=== PATIENT | female | born 1955 | race Caucasian/White ===

== ENCOUNTER 2017-10-09 09:52 | Observation (INO) | payer MEDICARE ==
[~2017-10-09] VITALS: Ht 160 cm; Wt 100.0 kg
[~2017-10-09 09:52] MED LIST: ATOR80TA45 PO; HYDR-3366 PO; LEVO150T7 PO; LISI20TA PO; METF850T PO
[2017-10-09 10:01] VITALS: BP 132/65; PULSE 74; RESP 20; TEMP 97.4; O2SAT 94
--- NOTE | 2017-10-09 10:37 | PD ---
HPI Chief Complaint: Pain: Acute or Chronic Time Seen by Provider: 10:20 Travel History International Travel<30 days: No Contact w/Intl Traveler<30days: No Traveled to known affect area: No History of Present Illness HPI Patient is a 62-year-old female presents emergency department for evaluation of worsening bilateral lower extremity pain with numbness and tingling over her gluteal muscles. Patient states that she had a spinal tumor removed some years ago in [place], she states that she has had chronic back pain since then. States she had an MRI in February which did show some stenosis but she has never followed up with a surgeon. She states ever since that MRI her symptoms are gradually worsening. She has also noticed some trickling urination. She is still retain the ability to walk albeit she is having painful radiculopathy going down both legs. She is taking pain medication at home and is taking Percocets which are relieving her pain. She also endorses saddle anesthesia. Denies any loss of stool or bladder. She told her primary care physicians at the family practice residency that she was having the symptoms on (4 days ago) and they told her to come to the emergency department for evaluation and she states that she had family in town so she waited till today. [facility] Past Medical History Narrative Medical Hypertension, diabetes, Diabetes: Yes Past Surgical History Narrative Surgical Cholecystectomy, back surgery. Social History Tobacco Use: Yes Allergies-Medications (Allergen,Severity, Reaction): Coded Allergies: No Known Allergies (Verified Allergy, Unknown, 06/30/17) Reported Meds & Prescriptions Reported Meds & Active Scripts Active Levothyroxine (Levothyroxine Sodium) 150 Mcg Tab 150 Mcg PO DAILY Bates (Hydrocodone-Acetaminophen) 10-325 Mg Tab 1 Tab PO Q8HR PRN Atorvastatin (Atorvastatin Calcium) 80 Mg Tab 80 Mg PO HS Metformin (Metformin HCl) 850 Mg Tab 850 Mg PO DAILY With a meal Lisinopril-Hctz 20-12.5 Mg Tab 1 Tab PO DAILY Review of Systems Except as stated in HPI: all other systems reviewed are Neg Physical Exam Narrative GENERAL: Well-developed well-nourished no obvious distress. SKIN: Focused skin assessment warm/dry. HEAD: Atraumatic. Normocephalic. EYES: Pupils equal and round. No scleral icterus. No injection or drainage. ENT: No nasal bleeding or discharge. Mucous membranes pink and moist. NECK: Trachea midline. No JVD. CARDIOVASCULAR: Regular rate and rhythm. No murmur appreciated. RESPIRATORY: No accessory muscle use. Clear to auscultation. Breath sounds equal bilaterally. GASTROINTESTINAL: Abdomen soft, non-tender, nondistended. Hepatic and splenic margins not palpable. MUSCULOSKELETAL: No obvious deformities. No clubbing. No cyanosis. No edema. NEUROLOGICAL: Awake and alert. Patient does have 5 out of 5 strength in bilateral lower extremities and plantar and dorsiflexion, she is able to ambulate without assistance. She does have loss of sensation over the gluteal muscles and some loss of sensation in the saddle distribution. Cranial nerves II through XII grossly intact and nonfocal. She has no midline CT or L-spine tenderness PSYCHIATRIC: Appropriate mood and affect; insight and judgment normal. Data Data Last Documented VS Vital Signs Date Time Temp Pulse Resp B/P (MAP) Pulse Ox O2 Delivery O2 Flow Rate FiO2 10/09/17 11:57 18 10/09/17 10:01 97.4 74 132/65 (87) 94 Orders Orders Mri L Spine W/O Contrast (10/09/17 ) Urinalysis - C+S If Indicated (10/09/17 10:46) Electrocardiogram (10/09/17 11:38) Ckmb (Isoenzyme) Profile (10/09/17 11:38) Complete Blood Count With Diff (10/09/17 11:38) Comprehensive Metabolic Panel (10/09/17 11:38) Magnesium (Mg) (10/09/17 11:38) Prothrombin Time / Inr (Pt) (10/09/17 11:38) Act Partial Throm Time (Ptt) (10/09/17 11:38) Troponin I (10/09/17 11:38) Ecg Monitoring (10/09/17 11:38) Bilateral Bp Monitoring (10/09/17 11:38) Iv Access Insert/Monitor (10/09/17 11:38) Oximetry (10/09/17 11:38) Oxygen Administration (10/09/17 11:38) Sodium Chloride 0.9% Flush (Ns Flush) (10/09/17 11:45) Chest, Pa & Lat (10/09/17 11:38) Consult Neurosurgery (10/09/17 ) Diet Npo (10/09/17 Lunch) Admit Order (Ed Use Only) (10/09/17 ) CKMB (10/09/17 11:54) CKMB% (10/09/17 11:54) Labs Laboratory Tests Test 10/09/17 11:54 White Blood Count 7.5 TH/MM3 Red Blood Count 4.26 MIL/MM3 Hemoglobin 13.8 GM/DL Hematocrit 39.9 % Mean Corpuscular Volume 93.7 FL Mean Corpuscular Hemoglobin 32.5 PG Mean Corpuscular Hemoglobin Concent 34.7 % Red Cell Distribution Width 12.6 % Platelet Count 304 TH/MM3 Mean Platelet Volume 7.2 FL Neutrophils (%) (Auto) 50.4 % Lymphocytes (%) (Auto) 42.2 % Monocytes (%) (Auto) 5.7 % Eosinophils (%) (Auto) 1.1 % Basophils (%) (Auto) 0.6 % Neutrophils # (Auto) 3.8 TH/MM3 Lymphocytes # (Auto) 3.2 TH/MM3 Monocytes # (Auto) 0.4 TH/MM3 Eosinophils # (Auto) 0.1 TH/MM3 Basophils # (Auto) 0.0 TH/MM3 CBC Comment DIFF FINAL Differential Comment Prothrombin Time 10.2 SEC Prothromb Time International Ratio 1.0 RATIO Activated Partial Thromboplast Time 26.1 SEC Blood Urea Nitrogen 16 MG/DL Creatinine 0.74 MG/DL Random Glucose 94 MG/DL Total Protein 7.4 GM/DL Albumin 3.5 GM/DL Calcium Level 8.4 MG/DL Magnesium Level 1.8 MG/DL Alkaline Phosphatase 57 U/L Aspartate Amino Transf (AST/SGOT) 27 U/L Alanine Aminotransferase (ALT/SGPT) 27 U/L Total Bilirubin 0.3 MG/DL Sodium Level 137 MEQ/L Potassium Level 4.0 MEQ/L Chloride Level 106 MEQ/L Carbon Dioxide Level 26.5 MEQ/L Anion Gap 5 MEQ/L Estimat Glomerular Filtration Rate 80 ML/MIN Total Creatine Kinase 208 U/L Creatine Kinase MB 3.0 NG/ML Creatine Kinase MB % 1.4 % Troponin I LESS THAN 0.02 NG/ML MDM Medical Decision Making Medical Screen Exam Complete: Yes Emergency Medical Condition: Yes Differential Diagnosis Cauda equina syndrome, chronic low back pain, acute on chronic low back pain, degenerative disc disease, urinary tract infection peer Narrative Course Patient symptoms certainly could be from cauda equina syndrome and I think that it would be prudent to perform an MRI on this patient this time. Her neurologic findings are rather limited however. Last 24 hours Impressions Chest X-Ray 10/09/17 1138 Signed Impressions: Service Date/Time: Monday, October 09, 2017 11:59 - CONCLUSION: No acute disease. Alfonso Reyes MD FACR Lumbar Spine MRI 10/09/17 0000 Signed Impressions: Service Date/Time: Monday, October 09, 2017 11:03 - CONCLUSION: Radiography significant spinal stenosis at the L3-4 level. Thecal sac at this level is obliterated. Alfonso Reyes MD FACR Dr. Jordan is at the bedside at noon to evaluate the patient. For MRI results which show obliteration at the L3-L4 level of the thecal sac. The results were discussed with the patient will be admitted to the residents. Patient was offered pain medicine declined at several intervals throughout her encounter in the ER. Diagnosis Primary Impression: Cauda equina syndrome Admitting Information Admitting Physician Requests: Admit Condition: Ken Shen MD Oct 09, 2017 10:37
--- NOTE | 2017-10-09 11:28 | RADRPT ---
EXAM DATE/TIME: 10/09/2017 11:03 [facility] COMPARISON: No previous studies available for comparison. INDICATIONS : Pain. Numbness and tingling bilateral lower extremities. MEDICAL HISTORY : Hypertension. Diabetes mellitus type 2. Hypothyroidism. SURGICAL HISTORY : Cholecystectomy. ENCOUNTER: Initial ACUITY: > 1 year PAIN SCORE: 2/10 LOCATION: [facility] TECHNIQUE: Multiplanar multisequence MRI of the lumbar spine was performed without contrast. FINDINGS: The most caudal appearing lumbar vertebra is numbered as L5. VERTEBRAE: Homogeneous signal. Normal alignment. CONUS: Normal level and configuration. T12-L1: The thecal sac has a normal diameter. No evidence of disc bulge or protrusion. The neural foramina are patent bilaterally. L1-L2: Mild generalized bulging without significant spinal stenosis. Mild facet disease. L2-L3: Moderate disc bulging evident with mild spinal stenosis. Moderate degenerative changes. L3-L4: Generalized bulging present with moderate to severe spinal stenosis. Degenerative changes in the fac et and ligamentous hypertrophy. L4-L5: Generalized bulging evident is centered to the left causing some flattening of the anterior thecal sp dimitri. Moderate bilateral neural foramina encroachment is present. L5-S1: Mild facet degenerative changes. No significant spinal stenosis SI joints are normal Retroperitoneum is unremarkable. CONCLUSION: Radiography significant spinal stenosis at the L3-4 level. Thecal sac at this level is obliterated. Alfonso Reyes MD FACR on October 09, 2017 at 11:24 Board Certified Radiologist. This report was verified electronically.
[2017-10-09] MEDS ORDERED: SODIUM CHLORIDE 0.9% FLUSH 10 ML FLUSH IVF PRN (11:45)
[2017-10-09 12:01] LABS: AUTOMATED NEUTROPHIL # 3.8 TH/MM3 (1.8-7.7); BASOPHIL % 0.6 % (0.0-2.0); EOSINOPHIL # 0.1 TH/MM3 (0-0.4); EOSINOPHIL % 1.1 % (0.0-4.0); HEMATOCRIT 39.9 % (35.0-46.0); HEMOGLOBIN 13.8 GM/DL (11.6-15.3); LYMPH % 42.2 % (9.0-44.0); LYMPHOCYTE # 3.2 TH/MM3 (1.0-4.8); MEAN CELL VOLUME 93.7 FL (80.0-100.0); MEAN CORPUSCULAR HEMOGLOBIN 32.5 PG (27.0-34.0); MEAN CORPUSCULAR HGB CONC 34.7 % (32.0-36.0); MEAN PLATELET VOLUME 7.2 FL (7.0-11.0); MONO % 5.7 % (0.0-8.0); MONOCYTE # 0.4 TH/MM3 (0-0.9); NEUT % 50.4 % (16.0-70.0); PLATELET COUNT 304 TH/MM3 (150-450); RED BLOOD COUNT 4.26 MIL/MM3 (4.00-5.30); RED CELL DISTRIBUTION WIDTH 12.6 % (11.6-17.2); WHITE BLOOD COUNT 7.5 TH/MM3 (4.0-11.0)
--- NOTE | 2017-10-09 12:01 | PD.CONS ---
HPI Consult Requested By Primary Care Physician Zena Matamoros MD History of Present Illness This is a 62 y/o female with history of neurofibroma, status post lumbar laminectomy and resection in 2013, diabetes mellitus, and carpal tunnel. She was sent into ED from clinic for evaluation of lower extremity numbness, and tingling in her groin. She started feeling tingling and paresthesias down the back of her legs, with shooting pains approximately 3-4 months ago along. She also has noticed change in urination in the past 2 months, with urgency. She awakens frequently overnight to urinate, doesn't always make it to the bathroom in time. No change in bowel movements. She denies any change in her back pain, which is 3/10 pain (also controlled by Simon ).She denies focal motor weakness or sensory loss. She denies urine/stool incontinence. She has experienced pain down the back of her legs and calfs over the last 3-4 months. She also admits to occasional numbness and tingling in her arms. She states this does feel similar to her carpal tunnel sx in the past. She has chronically had issues walking since her surgery in 2012, with the biggest obstacle being the leg pain. The type of leg pain has changed in the last 3-4 months. . Caprini VTE Risk Assessment Caprini VTE Risk Assessment: No/Low Risk (score <= 1) Caprini Risk Assessment Model Point Value = 1 Point Value = 2 Point Value = 3 Point Value = 5 Age 41-60 Minor surgery BMI > 25 kg/m2 Swollen legs Varicose veins or History of unexplained or recurrent spontaneous Oral contraceptives or hormone replacement Sepsis (< 1 month) Serious lung disease, including pneumonia (< 1 month) Abnormal pulmonary function Acute myocardial infarction Congestive heart failure (< 1 month) History of inflammatory bowel disease Medical patient at bed rest Age 61-74 Arthroscopic surgery Major open surgery (> 45 min) Laparoscopic surgery (> 45 min) Malignancy Confined to bed (> 72 hours) Immobilizing plaster cast Central venous access Age >= 75 History of VTE Family history of VTE Factor V Leiden Prothrombin [id number] Lupus anticoagulant Anticardiolipin antibodies Elevated serum homocysteine Heparin-induced thrombocytopenia Other congenital or acquired thrombophilia Stroke (< 1 month) Elective arthroplasty Hip, pelvis, or leg fracture Acute spinal cord injury (< 1 month) Prophylaxis Regimen Total Risk Factor Score Risk Level Prophylaxis Regimen 0-1 Low Early ambulation 2 Moderate Order ONE of the following: *Sequential Compression Device (SCD) *Heparin 5000 units SQ BID 3-4 Higher Order ONE of the following medications: *Heparin 5000 units SQ TID *Enoxaparin/Lovenox 40 mg SQ daily (WT < 150 kg, CrCl > 30 mL/min) *Enoxaparin/Lovenox 30 mg SQ daily (WT < 150 kg, CrCl > 10-29 mL/min) *Enoxaparin/Lovenox 30 mg SQ BID (WT < 150 kg, CrCl > 30 mL/min) AND/OR *Sequential Compression Device (SCD) 5 or more Highest Order ONE of the following medications: *Heparin 5000 units SQ TID (Preferred with Epidurals) *Enoxaparin/Lovenox 40 mg SQ daily (WT < 150 kg, CrCl > 30 mL/min) *Enoxaparin/Lovenox 30 mg SQ daily (WT < 150 kg, CrCl > 10-29 mL/min) *Enoxaparin/Lovenox 30 mg SQ BID (WT < 150 kg, CrCl > 30 mL/min) AND *Sequential Compression Device (SCD) Assessment and Plan Assessment and Plan 62 y/o F, hx of neurofibroma removal in 2012, DM2, and carpal tunnel, presents with cauda equina sx for 3-4months. Code Status Pending assessment by neurosurgery Problem List: (1) Cauda equina syndrome ICD Codes: G83.4 - Cauda equina syndrome Status: Acute Plan: Sx for 3-4months Follow-up immediate neurosurgical evaluation MRI 09/2017: Significant spinal stenosis at L3-L4 level. Thecal sac at this level is obliterated. Previous MRI 01/2017: Dextroscoliosis of lower lumbar spine, disc herniation from L1-S1, narrowing of central canal impinging L3 root. No compression or marrow infiltration. (2) Bilateral sciatica ICD Codes: M54.31 - Sciatica, right side; M54.32 - Sciatica, left side Status: Chronic Plan: Associated with lumbar spinal stenosis and cauda equina compression/ obliteration Consistent with pain in buttock and leg that is provoked by exercise and movement and relieved with forward bending, associated with cauda equina symptoms; saddle anesthesia, bladder incontinence, urinary retention f/u immediate neurosurgical eval If conservative management is recommended, will likely start steroid course for relief pt has hx of relief on medrol miguel as outpatient (3) Shortness of breath on exertion ICD Codes: R06.02 - Shortness of breath Status: Chronic Plan: Pain related versus early COPD versus CHF Continue pain medication Chest x-ray: Negative Follow-up BNP No signs of peripheral edema or fluid overload to indicate advanced CHF (4) Numbness of upper extremity ICD Codes: R20.0 - Anesthesia of skin Status: Chronic Plan: Differential includes carpal tunnel syndrome versus diabetic neuropathy Did not do carpal tunnel physical exam on admission because arms have been in a abnormal position and tingling is already occurring Repeat carpal tunnel physical exam findings in a.m. Follow-up hemoglobin A1c and fingersticks (5) Chronic hepatitis ICD Codes: K73.9 - Chronic hepatitis, unspecified Plan: dx in [address] abdomen reveals no signs of cirrhosis LFTs WNL f/u hepatitis panel f/u AFP screen (6) Diabetes ICD Codes: E11.9 - Type 2 diabetes mellitus without complications Plan: Hold metformin sliding scale insulin f/u HbA1c f/u FS (7) Hypothyroidism ICD Codes: E03.9 - Hypothyroidism, unspecified Status: Acute Plan: Continue current dosage f/u TSH, due for check (8) Hypertension ICD Codes: I10 - Essential (primary) hypertension Status: Chronic Plan: BP within normal limits Continue home medication (9) fen/ppx Status: Chronic Plan: Fluids: N.p.o. until neurosurgical decision is reached Electrolytes: BMP within normal limits, follow-up and replete as needed Nutrition: N.p.o. until decision Prophylaxis: Not indicated DVT prophylaxis: SCDs only Review of Systems Constitutional: DENIES: Weight gain, Weight loss Endocrine: DENIES: Heat/cold intolerance Eyes: DENIES: Photosensitivity, Double Vision Ears, nose, mouth, throat: DENIES: Nasal discharge, Oral lesions, Throat pain Respiratory: COMPLAINS OF: Shortness of breath (SOB with exertion, COPD related ?) Cardiovascular: COMPLAINS OF: Dyspnea on Exertion, DENIES: Lower Extremity Edema, Orthopnea Gastrointestinal: DENIES: Constipation, Diarrhea, Nausea, Vomiting Genitourinary: DENIES: Hematuria Musculoskeletal: COMPLAINS OF: Back pain Integumentary: DENIES: Rash Immunologic/allergic: DENIES: Urticaria Neurologic: DENIES: Headache, Seizures Psychiatric: DENIES: Mood changes, Depression Past Family Social History Allergies: Coded Allergies: No Known Allergies (Verified Allergy, Unknown, 06/30/17) Past Medical History Hypothyroidism HTN Diabetes Hyperlipidemia Vitamin D Deficiency Chronic back pain, s/p neurofibroma removal Acute disc herniation hx of Hep C Past Surgical History neurosurgical neurofibroma removal 2012, last saw neurosurgeon in 2015 - was recommended to find neurosurgeon here in [facility] and do yearly MRI Cholecystectomy - Carpal Tunnel - bilateral, in [facility] for SAB Multiple endoscopies and colonoscopy + polyp removal EGD with esophageal dilation in 06/2017neurosurgical neurofibroma removal 2012, last saw neurosurgeon in 2015 - was recommended to find neurosurgeon here in [facility] and do yearly MRI Cholecystectomy - Carpal Tunnel - bilateral, in [facility] for SAB Multiple endoscopies and colonoscopy + polyp removal EGD with esophageal dilation in 06/2017 Active Ordered Medications Current Medications Sodium Chloride (NS Flush) 2 ml UNSCH PRN IVF FLUSH AFTER USING IV ACCESS; Start 10/09/17 at 11:45; Stop 10/09/17 at 13:24; Status DC Atorvastatin Calcium (Lipitor) 80 mg HS PO ; Start 10/09/17 at 21:00 Acetaminophen/ Hydrocodone Bitart (Simon 10-325 Mg) 1 tab Q8HR PRN PO PAIN 1-10 ; Start 10/09/17 at 13:00 Levothyroxine Sodium (Synthroid) 150 mcg DAILY@0600 PO ; Start 10/09/17 at 13:00 Non-Formulary Medication 1 tab DAILY PO ; Start 10/09/17 at 13:00; Stop at 13:02; Status DC Lisinopril (Prinivil) 20 mg DAILY PO Last administered on 10/09/17at 13:23; Start 10/09/17 at 13:02 Hydrochlorothiazide (Hydrodiuril) 12.5 mg DAILY PO Last administered on at 13:22; Start 10/09/17 at 13:02 Sodium Chloride (NS Flush) 2 ml UNSCH PRN IV FLUSH FLUSH AFTER USING IV ACCESS ; Start 10/09/17 at 13:30 Sodium Chloride (NS Flush) 2 ml BID IV FLUSH ; Start 10/09/17 at 21:00 Acetaminophen (Tylenol) 650 mg Q4H PRN PO TEMP > 100.4; Start 10/09/17 at 13:30 Ondansetron HCl (Zofran Inj) 4 mg Q6H PRN IVP NAUSEA OR VOMITING; Start at 13:30 Zolpidem Tartrate (Ambien) 5 mg HS PRN PO INSOMNIA; Start 10/09/17 at 13:30 Naloxone HCl (Narcan Inj) 0.4 mg UNSCH PRN IV PUSH SEE LABEL COMMENTS; Start at 13:30 Magnesium Hydroxide (Milk Of Magnesia Liq) 30 ml Q12H PRN PO Mild constipation ; Start 10/09/17 at 13:30 Sennosides (Senokot) 17.2 mg Q12H PRN PO Moderate constipation; Start 10/09/17 at 13:30 Bisacodyl (Dulcolax Supp) 10 mg DAILY PRN RECTAL SEVERE CONSITIPATION; Start at 13:30 Dextrose (D50w (Vial) Inj) 50 ml UNSCH PRN IV PUSH HYPOGLYCEMIA-SEE COMMENTS; Start 10/09/17 at 13:45 Glucagon (Glucagon Inj) 1 mg UNSCH PRN OTHER HYPOGLYCEMIA-SEE COMMENTS; Start 10/09/17 at 13:45 Insulin Aspart (NovoLOG SUPPLEMENTAL SCALE) 1 ACHS SLIDING SCALE SQ ; Start at 17:00 Family History The family history was reviewed Fater renal carcinoma Mother side - heart disease Social History stopped smoking 5 years ago - smoked 1/2 ppd x 30 years,denies drinking or any drug use lives in a mobile home here with Physical Exam Vital Signs Vital Signs Date Time Temp Pulse Resp B/P (MAP) Pulse Ox O2 Delivery O2 Flow Rate FiO2 10/09/17 11:57 18 10/09/17 10:01 97.4 74 20 132/65 (87) 94 Physical Exam GENERAL: well-nourished, well-developed patient, in no apparent distress. Truncal obesity SKIN: No rashes, ecchymoses or lesions. Cool and dry. HEAD: Atraumatic. Normocephalic. No temporal or scalp tenderness. EYES: Pupils equal round and reactive. Extraocular motions intact. No scleral icterus. No injection or drainage. ENT: Nose without bleeding, purulent drainage or septal hematoma. Throat without erythema, tonsillar hypertrophy or exudate. Uvula midline. Airway patent. NECK: Trachea midline. No JVD or lymphadenopathy. Supple, nontender, no meningeal signs. CARDIOVASCULAR: Regular rate and rhythm without murmurs, gallops, or rubs. RESPIRATORY: Clear to auscultation. Breath sounds equal bilaterally. No wheezes , rales, or rhonchi. GASTROINTESTINAL: Abdomen soft, non-tender, nondistended. No hepato-splenomegaly , or palpable masses. No guarding. MUSCULOSKELETAL: Extremities without clubbing, cyanosis, or edema. No joint tenderness, effusion, or edema noted. No calf tenderness. Negative Homans sign bilaterally. Calfs appear to be hypertrophied. NEUROLOGICAL:The patient is alert, awake and oriented to time, place and person. Speech is fluent. Cranial nerve examination: pupils to be equal, round and reactive to light. Extra-ocular movements are intact. Facial motor and sensory function are normal and symmetrical. Gross hearing appears intact. Sternocleidomastoid and trapezius muscles are symmetrical. Other cranial nerves are intact. Neck is soft and supple with a decreased range of motion without pain. Muscle strength is normal in all muscle groups of both upper and lower extremities. Sensory examination is intact to light touch and pin prick in both the upper and lower extremities. Deep tendon reflexes are symmetrical in both upper and lower extremities. There is a bilateral plantar flexion response. Cerebellar examination is unremarkable, without deficits. Gait is unremarkable Laboratory Laboratory Tests Test 10/09/17 11:54 Attending Statement I reviewed her radiological studies including Chest X-Ray 10/09/17 1138 Signed Impressions: Service Date/Time: Monday, October 09, 2017 11:59 - CONCLUSION: No acute disease. Alfonso Reyes MD FACR Lumbar Spine MRI 10/09/17 0000 Signed Impressions: Service Date/Time: Monday, October 09, 2017 11:03 - CONCLUSION: Radiography significant spinal stenosis at the L3-4 level. Thecal sac at this level is obliterated. Alfonso Reyes MD FACR This is a 62 year old female with lumbar spinal stenosis. This patient does not have a caude equine syndrome. She has spinal stenosis with lower extremity radiculopathy. I discussed with her the alternatives of treatment including surgery as a last resort. She has history of neurofibroma, and an MRI without contrast is inappropriate to evaluate her condition. I recommend MRI with contrast of the lumbar and thoracic spine to rule out neurofibroma. the patient has sensory symptoms affecting her upper extremities. I recommend MRI of the cervical spine She is not enthusiastic to consider surgery. I will consult physical therapy for evaluation and treatment. aggressive pulmonary toilette, nasotracheal suction, and breathing treatments with nebulizers. Nutrition. NPO Renal. monitor closely urine output, BUN and creatinine Endocrine. Monitor serial Acu checks and SSI as needed in detail ID monitor for signs of infection Protonix for stress ulcer prophylaxis Enrique hose and SCD's for DVT prophylaxis Further recommendations depending on her clinical evolution and follow up studies Laron Jordan MD Oct 09, 2017 12:01
[2017-10-09 12:22] LABS: PROTHROMBIN TIME - PATIENT 10.2 SEC (9.8-11.6)
--- NOTE | 2017-10-09 12:22 | RADRPT ---
EXAM DATE/TIME: 10/09/2017 11:59 [facility] COMPARISON: No previous studies available for comparison. INDICATIONS : Short of breath. MEDICAL HISTORY : None. SURGICAL HISTORY : None. ENCOUNTER: Initial ACUITY: 1 week PAIN SCORE: 0/10 LOCATION: Bilateral chest FINDINGS: PA and lateral views of the chest demonstrate the lungs to be symmetrically aerated without evidence of mass, infiltrate or effusion. The cardiomediastinal contours are unremarkable. Degenerative davis ges thoracic spine CONCLUSION: No acute disease. Alfonso Reyes MD FACR on October 09, 2017 at 12:20 Board Certified Radiologist. This report was verified electronically.
[2017-10-09 12:25] VITALS: O2SAT 98
[2017-10-09 12:27] LABS: ALBUMIN 3.5 GM/DL (3.4-5.0); ALT (GPT) 27 U/L (10-53); AST (GOT) 27 U/L (15-37); BICARBONATE 26.5 MEQ/L (21.0-32.0); BLOOD UREA NITROGEN 16 MG/DL (7-18); CALCIUM 8.4 MG/DL (8.5-10.1); CHLORIDE 106 MEQ/L (98-107); CREATININE 0.74 MG/DL (0.50-1.00); GLOMERULAR FILTRATION RATE 80 ML/MIN (>89); GLUCOSE,RANDOM 94 MG/DL (74-106); MAGNESIUM 1.8 MG/DL (1.5-2.5); SODIUM (NA) 137 MEQ/L (136-145)
[2017-10-09 12:31] LABS: ALKALINE PHOSPHATASE 57 U/L (45-117); TOTAL BILIRUBIN ADULT 0.3 MG/DL (0.2-1.0); TOTAL PROTEIN 7.4 GM/DL (6.4-8.2); TROPONIN I LESS THAN 0.02 NG/ML (0.02-0.05)
--- NOTE | 2017-10-09 12:36 | HHI.HP ---
[facility] Service Family Medicine Primary Care Physician Zena Matamoros MD Admission Diagnosis Cauda Equina Syndrome Diagnoses: International Travel<30 Days: No Contact w/Intl Traveler<30days: No Known Affected Area: No History of Present Illness 62 y/o F, hx of neurofibroma removal in 2013, DM2, and carpal tunnel, is sent into ED from clinic with chief complaint of numbness and tingling in groin area. She started feeling currents down the back of her legs (shooting pains) 3- 4 months ago alongside the groin symptoms. She has not had any imaging done in the interim although we had ordered imaging in clinic. She also has noticed change in urination; she awakens frequently overnight to urinate, doesn't always make it to the bathroom in time. No change in bowel movements has been noticed. She denies any change in her back pain, and it has stayed at a 3/10 pain (also controlled by Power 10 3-4x/day).She has experienced worsening pain down the back of her legs and calfs over the last 3-4 months. The pain is 6/10 and comes along with the currents. She has numbness/tingling from her feet to her groin area; with her legs and buttocks being the most numb. She also admits to occasional numbness and tingling in her arms. She states this does feel similar to her carpal tunnel sx in the past. She has chronically had issues walking since her surgery in 2012, with the biggest obstacle being the leg pain. The type of leg pain has changed in the last 3-4 months, with the addition of shooting electrical currents. Review of Systems Constitutional: DENIES: Weight gain, Weight loss Endocrine: DENIES: Heat/cold intolerance Eyes: DENIES: Photosensitivity, Double Vision Ears, nose, mouth, throat: DENIES: Nasal discharge, Oral lesions, Throat pain Respiratory: COMPLAINS OF: Shortness of breath (SOB with exertion, COPD related ?) Cardiovascular: COMPLAINS OF: Dyspnea on Exertion, DENIES: Lower Extremity Edema, Orthopnea Gastrointestinal: DENIES: Constipation, Diarrhea, Nausea, Vomiting Genitourinary: DENIES: Hematuria Musculoskeletal: COMPLAINS OF: Back pain Integumentary: DENIES: Rash Immunologic/allergic: DENIES: Urticaria Neurologic: DENIES: Headache, Seizures Psychiatric: DENIES: Mood changes, Depression Past Family Social History Past Medical History Hypothyroidism HTN Diabetes Hyperlipidemia Vitamin D Deficiency Chronic back pain, s/p fibroma removal - nerve compression - handled by neurosurgery Acute disc herniation hx of Hep C Past Surgical History neurosurgical neurofibroma removal 2012, last saw neurosurgeon in 2015 - was recommended to find neurosurgeon here in [facility] and do yearly MRI Cholecystectomy - Carpal Tunnel - bilateral, in [facility] for SAB Multiple endoscopies and colonoscopy + polyp removal EGD with esophageal dilation in 06/2017 - benign-appearing Allergies: Coded Allergies: No Known Allergies (Verified Allergy, Unknown, 06/30/17) Family History Dad - renal carcinoma Mom's side - heart disease Social History stopped smoking 5 years ago - smoked 1/2 ppd x 30 years,denies drinking or any drug use lives in a mobile home here with Physical Exam Vital Signs Vital Signs Date Time Temp Pulse Resp B/P (MAP) Pulse Ox O2 Delivery O2 Flow Rate FiO2 10/09/17 12:25 98 Room Air 10/09/17 12:25 98 Room Air 10/09/17 11:57 18 10/09/17 10:01 97.4 74 20 132/65 (87) 94 Physical Exam GENERAL: This is a well-nourished, well-developed patient, in no apparent distress. SKIN: No rashes, ecchymoses or lesions. Cool and dry. HEAD: Atraumatic. Normocephalic. No temporal or scalp tenderness. EYES: Pupils equal round and reactive. Extraocular motions intact. No scleral icterus. No injection or drainage. ENT: Nose without bleeding, purulent drainage or septal hematoma. Throat without erythema, tonsillar hypertrophy or exudate. Uvula midline. Airway patent. NECK: Trachea midline. No JVD or lymphadenopathy. Supple, nontender, no meningeal signs. CARDIOVASCULAR: Regular rate and rhythm without murmurs, gallops, or rubs. RESPIRATORY: Clear to auscultation. Breath sounds equal bilaterally. No wheezes , rales, or rhonchi. GASTROINTESTINAL: Abdomen soft, non-tender, nondistended. No hepato-splenomegaly , or palpable masses. No guarding. MUSCULOSKELETAL: Extremities without clubbing, cyanosis, or edema. No joint tenderness, effusion, or edema noted. No calf tenderness. Negative Homans sign bilaterally. Calfs appear to be hypertrophied. NEUROLOGICAL: Awake and alert. Cranial nerves II through XII intact. 5/5 sensation equal bilaterally in LE, 5/5 motor strength equal bilaterally in LE. Five out of 5 muscle strength in all muscle groups. Normal speech. Laboratory Laboratory Tests Test 10/09/17 11:54 White Blood Count 7.5 Red Blood Count 4.26 Hemoglobin 13.8 Hematocrit 39.9 Mean Corpuscular Volume 93.7 Mean Corpuscular Hemoglobin 32.5 Mean Corpuscular Hemoglobin Concent 34.7 Red Cell Distribution Width 12.6 Platelet Count 304 Mean Platelet Volume 7.2 Neutrophils (%) (Auto) 50.4 Lymphocytes (%) (Auto) 42.2 Monocytes (%) (Auto) 5.7 Eosinophils (%) (Auto) 1.1 Basophils (%) (Auto) 0.6 Neutrophils # (Auto) 3.8 Lymphocytes # (Auto) 3.2 Monocytes # (Auto) 0.4 Eosinophils # (Auto) 0.1 Basophils # (Auto) 0.0 CBC Comment DIFF FINAL Differential Comment Prothrombin Time 10.2 Prothromb Time International Ratio 1.0 Activated Partial Thromboplast Time 26.1 Blood Urea Nitrogen 16 Creatinine 0.74 Random Glucose 94 Albumin 3.5 Calcium Level 8.4 Magnesium Level 1.8 Aspartate Amino Transf (AST/SGOT) 27 Alanine Aminotransferase (ALT/SGPT) 27 Sodium Level 137 Potassium Level 4.0 Chloride Level 106 Carbon Dioxide Level 26.5 Anion Gap 5 Estimat Glomerular Filtration Rate 80 Result Diagram: 10/09/17 1154 10/09/17 1154 Caprini VTE Risk Assessment Caprini VTE Risk Assessment: No/Low Risk (score <= 1) Caprini Risk Assessment Model Point Value = 1 Point Value = 2 Point Value = 3 Point Value = 5 Age 41-60 Minor surgery BMI > 25 kg/m2 Swollen legs Varicose veins or History of unexplained or recurrent spontaneous Oral contraceptives or hormone replacement Sepsis (< 1 month) Serious lung disease, including pneumonia (< 1 month) Abnormal pulmonary function Acute myocardial infarction Congestive heart failure (< 1 month) History of inflammatory bowel disease Medical patient at bed rest Age 61-74 Arthroscopic surgery Major open surgery (> 45 min) Laparoscopic surgery (> 45 min) Malignancy Confined to bed (> 72 hours) Immobilizing plaster cast Central venous access Age >= 75 History of VTE Family history of VTE Factor V Leiden Prothrombin [id number] Lupus anticoagulant Anticardiolipin antibodies Elevated serum homocysteine Heparin-induced thrombocytopenia Other congenital or acquired thrombophilia Stroke (< 1 month) Elective arthroplasty Hip, pelvis, or leg fracture Acute spinal cord injury (< 1 month) Prophylaxis Regimen Total Risk Factor Score Risk Level Prophylaxis Regimen 0-1 Low Early ambulation 2 Moderate Order ONE of the following: *Sequential Compression Device (SCD) *Heparin 5000 units SQ BID 3-4 Higher Order ONE of the following medications: *Heparin 5000 units SQ TID *Enoxaparin/Lovenox 40 mg SQ daily (WT < 150 kg, CrCl > 30 mL/min) *Enoxaparin/Lovenox 30 mg SQ daily (WT < 150 kg, CrCl > 10-29 mL/min) *Enoxaparin/Lovenox 30 mg SQ BID (WT < 150 kg, CrCl > 30 mL/min) AND/OR *Sequential Compression Device (SCD) 5 or more Highest Order ONE of the following medications: *Heparin 5000 units SQ TID (Preferred with Epidurals) *Enoxaparin/Lovenox 40 mg SQ daily (WT < 150 kg, CrCl > 30 mL/min) *Enoxaparin/Lovenox 30 mg SQ daily (WT < 150 kg, CrCl > 10-29 mL/min) *Enoxaparin/Lovenox 30 mg SQ BID (WT < 150 kg, CrCl > 30 mL/min) AND *Sequential Compression Device (SCD) Assessment and Plan Assessment and Plan 62 y/o F, hx of neurofibroma removal in 2012, DM2, and carpal tunnel, presents with cauda equina sx for 3-4months. Code Status Pending assessment by neurosurgery Problem List: (1) Cauda equina syndrome ICD Codes: G83.4 - Cauda equina syndrome Status: Acute Plan: Sx for 3-4months Follow-up immediate neurosurgical evaluation MRI 09/2017: Significant spinal stenosis at L3-L4 level. Thecal sac at this level is obliterated. Previous MRI 01/2017: Dextroscoliosis of lower lumbar spine, disc herniation from L1-S1, narrowing of central canal impinging L3 root. No compression or marrow infiltration. (2) Bilateral sciatica ICD Codes: M54.31 - Sciatica, right side; M54.32 - Sciatica, left side Status: Chronic Plan: Associated with lumbar spinal stenosis and cauda equina compression/ obliteration Consistent with pain in buttock and leg that is provoked by exercise and movement and relieved with forward bending, associated with cauda equina symptoms; saddle anesthesia, bladder incontinence, urinary retention f/u immediate neurosurgical eval If conservative management is recommended, will likely start steroid course for relief pt has hx of relief on medrol miguel as outpatient (3) Shortness of breath on exertion ICD Codes: R06.02 - Shortness of breath Status: Chronic Plan: Pain related versus early COPD versus CHF Continue pain medication Chest x-ray: Negative Follow-up BNP No signs of peripheral edema or fluid overload to indicate advanced CHF (4) Numbness of upper extremity ICD Codes: R20.0 - Anesthesia of skin Status: Chronic Plan: Differential includes carpal tunnel syndrome versus diabetic neuropathy Did not do carpal tunnel physical exam on admission because arms have been in a abnormal position and tingling is already occurring Repeat carpal tunnel physical exam findings in a.m. Follow-up hemoglobin A1c and fingersticks (5) Chronic hepatitis ICD Codes: K73.9 - Chronic hepatitis, unspecified Plan: dx in [address] abdomen reveals no signs of cirrhosis LFTs WNL f/u hepatitis panel f/u AFP screen (6) Diabetes ICD Codes: E11.9 - Type 2 diabetes mellitus without complications Plan: Hold metformin sliding scale insulin f/u HbA1c f/u FS (7) Hypothyroidism ICD Codes: E03.9 - Hypothyroidism, unspecified Status: Acute Plan: Continue current dosage f/u TSH, due for check (8) Hypertension ICD Codes: I10 - Essential (primary) hypertension Status: Chronic Plan: BP within normal limits Continue home medication (9) fen/ppx Status: Chronic Plan: Fluids: N.p.o. until neurosurgical decision is reached Electrolytes: BMP within normal limits, follow-up and replete as needed Nutrition: N.p.o. until decision Prophylaxis: Not indicated DVT prophylaxis: SCDs only Physician Certification 2 Midnight Certification Type: Admission for Inpatient Services Order for Inpatient Services The services are ordered in accordance with Medicare regulations or non- Medicare payer requirements, as applicable. In the case of services not specified as inpatient-only, they are appropriately provided as inpatient services in accordance with the 2-midnight benchmark. Estimated LOS (days): 2 days is the estimated time the patient will need to remain in the hospital, assuming treatment plan goals are met and no additional complications. Post-Hospital Plan: Home Zena Matmaoros MD R2 Oct 09, 2017 12:36
[2017-10-09] MEDS ORDERED: NON-FORMULARY DRUG (Lisinopril-Hctz 1 TAB) PO SCH (13:00)
[2017-10-09] MEDS: HYDROCHLOROTHIAZIDE 25 MG TAB PO SCH (13:22)
[2017-10-09] MEDS: LISINOPRIL 20 MG TAB PO SCH (13:23)
[2017-10-09 13:25] VITALS: BP 129/62; PULSE 68; RESP 18; O2SAT 99
[2017-10-09] MEDS ORDERED: BISACODYL 10 MG SUPP RECTAL PRN (13:30)
[2017-10-09] MEDS ORDERED: ZOLPIDEM TARTRATE 5 MG TAB PO PRN (13:30)
[2017-10-09] MEDS ORDERED: SODIUM CHLORIDE 0.9% FLUSH 10 ML FLUSH IV FLUSH PRN (13:30)
[2017-10-09] MEDS ORDERED: ONDANSETRON HCL 4 MG/2 ML VIAL IVP PRN (13:30)
[2017-10-09] MEDS ORDERED: NALOXONE HCL 0.4 MG/ML AMP IV PUSH PRN (13:30)
[2017-10-09] MEDS ORDERED: ACETAMINOPHEN 325 MG TAB PO PRN (13:30)
[2017-10-09] MEDS ORDERED: SENNOSIDES 8.6 MG TAB PO PRN (13:30)
[2017-10-09] MEDS ORDERED: GLUCAGON 1 MG/ML VIAL OTHER PRN (13:45)
[2017-10-09] MEDS ORDERED: DEXTROSE 50% IN WATER 50 ML VIAL(D50) IV PUSH PRN (13:45)
[2017-10-09 16:00] VITALS: BP 117/56; PULSE 50; RESP 18; TEMP 97.9; O2SAT 98
[2017-10-09] MEDS: INSULIN ASPART SUPPLEMENTAL SCALE SQ SCH ×2 (17:00→21:00)
[2017-10-09 19:15] LABS: BILIRUBIN, URINE NEG (NEG); BLOOD, URINE NEG (NEG); GLUCOSE,URINE NEG (NEG); KETONE, URINE NEG (NEG); MUCUS URINE FEW /lpf (OCC); NITRITE,URINE NEG (NEG); PH, URINE 5.5 (5.0-8.5); SQUAMOUS EPITHELIAL CELL URINE 3 /hpf (0-5); URINE COLOR YELLOW (YELLW/STRAW); URINE LEUKOCYTE ESTERASE NEG (NEG)
[2017-10-09 20:00] VITALS: BP 99/57; PULSE 66; RESP 18; TEMP 97.8; O2SAT 97
[2017-10-09] MEDS ORDERED: GADODIAMIDE PF 287 MG/ML 20 ML VIAL (for RAD MRI) IVCONTRAST ONE (20:40)
[2017-10-09] MEDS: ATORVASTATIN 80 MG TAB PO SCH (21:08)
[2017-10-09] MEDS: ACETAMINOPHEN/HYDROcodone 325 MG/10 MG TAB PO PRN (21:08)
[2017-10-09] MEDS: SODIUM CHLORIDE 0.9% FLUSH 10 ML FLUSH IV FLUSH SCH (21:09)
--- NOTE | 2017-10-09 21:19 | RADRPT ---
EXAM DATE/TIME: 10/09/2017 20:12 [facility] COMPARISON: No previous studies available for comparison. INDICATIONS : Paresthesia. MEDICAL HISTORY : Hypertension. Hypothyroidism. Diabetes mellitus type 2. SURGICAL HISTORY : Cholecystectomy. ENCOUNTER: Initial ACUITY: 1 day PAIN SCORE: 2/10 LOCATION: Paraspinal TECHNIQUE: Multiplanar, multisequence MRI examination of the cervical spine was performed. FINDINGS: VERTEBRAE: Normal vertebral body height. Homogeneous marrow signal. ALIGNMENT: No evidence of subluxation. CORD: Normal configuration and signal. POST FOSSA: The cerebellar tonsils are normal in position. C2-C3: The thecal sac has a normal configuration. There is no evidence of disc herniation or spinal canal s tenosis. The neural foramina are patent bilaterally. C3-C4: The thecal sac has a normal configuration. There is no evidence of disc herniation or spinal canal s tenosis. The neural foramina are patent bilaterally. C4-C5: The thecal sac has a normal configuration. There is no evidence of disc herniation or spinal canal s tenosis. The neural foramina are patent bilaterally. C5-C6: There is a moderate central to right paracentral disc protrusion abutting the anterior aspect of the cord. There continues to be CSF around the remaining aspects of the cord. The neural foramina are pat ent bilaterally. C6-C7: There is a mild central to right sided disc protrusion. There continues to be CSF around the cord. Th e neural foramina are patent bilaterally. C7-T1: The thecal sac has a normal configuration. There is no evidence of disc herniation or spinal canal s tenosis. The neural foramina are patent bilaterally. CONCLUSION: 1. Moderate central to right-sided disc protrusion at the C5-C6 level abutting the anterior aspect of the cord. 2. Mild central to right-sided disc protrusion at the C6-C7 level. Carlos Rey MD on October 09, 2017 at 21:16 Board Certified Radiologist. This report was verified electronically.
--- NOTE | 2017-10-09 21:46 | RADRPT ---
EXAM DATE/TIME: 10/09/2017 20:12 [facility] COMPARISON: No previous studies available for comparison. INDICATIONS : Numbness and tingling bilateral lower extremities. CONTRAST: 20 cc Omniscan (gadodiamide) IV MEDICAL HISTORY : Hypertension. Diabetes mellitus type 2. Hypothyroidism. SURGICAL HISTORY : Cholecystectomy. ENCOUNTER: Initial ACUITY: 1 day PAIN SCORE: 2/10 LOCATION: Paraspinal TECHNIQUE: Multiplanar multisequence MRI of the thoracic spine was performed. FINDINGS: VERTEBRA: Normal vertebral body height. Homogeneous marrow signal. ALIGNMENT: Normal. CORD: Normal position and configuration. POST CONTRAST: No abnormal areas of contrast enhancement seen. T1-T2: Normal. T2-T3: The thecal sac has a normal diameter. No evidence of disc bulge or protrusion. T3-T4: The thecal sac has a normal diameter. No evidence of disc bulge or protrusion. T4-T5: The thecal sac has a normal diameter. No evidence of disc bulge or protrusion. T5-T6: The thecal sac has a normal diameter. No evidence of disc bulge or protrusion. T6-T7: There is a minimal left lateral recess disc protrusion without significant stenosis. T7-T8: There is a minimal left lateral recess disc protrusion without significant stenosis. T8-T9: The thecal sac has a normal diameter. No evidence of disc bulge or protrusion. T9-T10: There is a minimal right lateral recess disc protrusion without significant stenosis. T10-T11: The thecal sac has a normal diameter. No evidence of disc bulge or protrusion. T11-T12: There is a minimal right lateral recess disc protrusion without significant stenosis. T12-L1: The thecal sac has a normal diameter. No evidence of disc bulge or protrusion. CONCLUSION: Minimal scattered disc changes without significant stenosis delineated above. Carlos Rey MD on October 09, 2017 at 21:42 Board Certified Radiologist. This report was verified electronically.
--- NOTE | 2017-10-09 21:55 | RADRPT ---
EXAM DATE/TIME: 10/09/2017 20:12 [facility] COMPARISON: MRI LUMBAR SPINE W/O CONTRAST, October 09, 2017, 11:03. INDICATIONS : Numbness and tingling bilateral lower extremities. CONTRAST: 20 cc Omniscan (gadodiamide) IV MEDICAL HISTORY : Hypertension. Hypothyroidism. Diabetes mellitus type 2. SURGICAL HISTORY : Cholecystectomy. ENCOUNTER: Initial ACUITY: 1 day PAIN SCORE: 2/10 LOCATION: Paraspinal TECHNIQUE: Multiplanar multisequence MRI of the lumbar spine was performed. FINDINGS: The patient had an MRI examination without contrast performed on 2017 at 11 AM. The most caudal appearing lumbar vertebra is numbered as L5. There is metallic susceptibility artifac t seen at the L4-5 posterior elements, this could be secondary to cerclage wires. Plain films are jacinto vailable at this time. VERTEBRAE: Homogeneous signal. Normal alignment. CONUS: Normal level and configuration. POST CONTRAST: No abnormal areas of contrast enhancement are seen. T12-L1: The thecal sac has a normal diameter. No evidence of disc bulge or protrusion. The neural foramina are patent bilaterally. L1-L2: The thecal sac has a normal diameter. No evidence of disc bulge or protrusion. The neural foramina are patent bilaterally. L2-L3: The thecal sac has a normal diameter. No evidence of disc bulge or protrusion. The neural foramina are patent bilaterally. L3-L4: There is diffuse disc bulge and severe facet and ligamentum flavum hypertrophy leading to moderate to severe narrowing of the thecal sac. There is narrowing of the left neural foramina. The right neural foramina is patent. L4-L5: There is mild bulging better seen on the earlier examination. There is moderate facet hypertrophy see n bilaterally causing mild narrowing of the transverse dimension of the thecal sac. There is narrowin g of the neural foramina bilaterally being worse on the left. L5-S1: The thecal sac has a normal diameter. No evidence of disc bulge or protrusion. There is severe face t hypertrophy. There is narrowing of the right neural foramina. Left neural foramina is patent. CONCLUSION: 1. Moderate to severe stenosis at the L3-L4 level. 2. Mild stenosis at the L4-L5 level. 3. Neural foraminal narrowing at the left L3-L4 level, bilaterally at the L4-L5 level, and at the rig ht L5-S1 level. 4. Suspected postoperative cerclage wires or metallic density at the posterior element of L4 and L5. Carlos Rey MD on October 09, 2017 at 21:45 Board Certified Radiologist. This report was verified electronically.
--- NOTE | 2017-10-09 22:43 | RADRPT ---
EXAM DATE/TIME: 10/09/2017 22:03 [facility] COMPARISON: No previous studies available for comparison. INDICATIONS : Evaluate lumbar spine flextion and extension MEDICAL HISTORY : Hypertension. Hypothyroidism. Diabetes mellitus type 2. SURGICAL HISTORY : Cholecystectomy. Laminectomy ENCOUNTER: Initial ACUITY: 2 days PAIN SCORE: 4/10 LOCATION: Lumbar spine FINDINGS: Lateral views of the lumbar spine were performed in flexion and extension. There is minimal anterior subluxation of L4 on L5. This does not increase on flexion or extension images. Very little overall change is detected between flexion and extension. There are surgical fasteners seen over the posterio r aspects of L4 and L5. There appears to be fusion at the L4-L5 and L5-S1 facet joints. There may be fusion or hypertrophic change at the L3-L4 levels. Vascular calcifications are seen. CONCLUSION: Minimal anterior subluxation of L4 and L5. No abnormal motion is detected. There appears to be fusion at the L4-L5 and L5-S1 facet joint. Surgical fasteners are present. Carlos Rey MD on October 09, 2017 at 22:39 Board Certified Radiologist. This report was verified electronically.
[2017-10-10] VITALS (8 sets, daily range): BP systolic 92–127; BP diastolic 48–67; PULSE 51–66; RESP 17–18; TEMP 97.2–97.9; O2SAT 94–97
[2017-10-10] MEDS: LEVOTHYROXINE SODIUM 150 MCG TAB PO SCH (06:33)
[2017-10-10] MEDS: ACETAMINOPHEN/HYDROcodone 325 MG/10 MG TAB PO PRN ×3 (06:34→22:50)
[2017-10-10] MEDS: INSULIN ASPART SUPPLEMENTAL SCALE SQ SCH ×4 (08:00→21:00)
[2017-10-10 08:57] LABS: BASOPHIL % 0.5 % (0.0-2.0); EOSINOPHIL # 0.1 TH/MM3 (0-0.4); EOSINOPHIL % 1.2 % (0.0-4.0); HEMATOCRIT 38.5 % (35.0-46.0); HEMOGLOBIN 13.4 GM/DL (11.6-15.3); LYMPH % 38.3 % (9.0-44.0); LYMPHOCYTE # 2.2 TH/MM3 (1.0-4.8); MEAN CELL VOLUME 94.3 FL (80.0-100.0); MEAN CORPUSCULAR HEMOGLOBIN 32.8 PG (27.0-34.0); MEAN CORPUSCULAR HGB CONC 34.8 % (32.0-36.0); MEAN PLATELET VOLUME 7.8 FL (7.0-11.0); MONO % 7.4 % (0.0-8.0); MONOCYTE # 0.4 TH/MM3 (0-0.9); NEUT % 52.6 % (16.0-70.0); PLATELET COUNT 251 TH/MM3 (150-450); RED BLOOD COUNT 4.08 MIL/MM3 (4.00-5.30); RED CELL DISTRIBUTION WIDTH 12.4 % (11.6-17.2); WHITE BLOOD COUNT 5.8 TH/MM3 (4.0-11.0)
[2017-10-10] MEDS: HYDROCHLOROTHIAZIDE 25 MG TAB PO SCH (09:00)
[2017-10-10 09:16] LABS: BICARBONATE 25.9 MEQ/L (21.0-32.0); CREATININE 0.68 MG/DL (0.50-1.00)
[2017-10-10] MEDS: MAGNESIUM HYDROXIDE SUSP 30 ML CUP PO PRN (10:02)
[2017-10-10] MEDS: LISINOPRIL 20 MG TAB PO SCH (10:03)
[2017-10-10] MEDS: SODIUM CHLORIDE 0.9% FLUSH 10 ML FLUSH IV FLUSH SCH ×2 (10:03→21:00)
--- NOTE | 2017-10-10 10:15 | EKG ---
Date Performed: 10/09/2017 Time Performed: 12:21:41 PTAGE: 62 years EKG: Sinus rhythm WITH FIRST DEGREE AV BLOCK PROLONGED QT INTERVAL ABNORMAL ECG INTERPRETATION BASED ON A DEFAULT AGE OF 40 YEARS NO PREVIOUS TRACING DOCTOR: Aat Simmons Interpretating Date/Time 10/10/2017 10:12:27
[2017-10-10 15:14] LABS: HEMOGLOBIN A1C 6.3 % (4.3-6.0)
--- NOTE | 2017-10-10 16:41 | HHI.FPPN ---
Subjective Remarks Patient was seen and evaluated this morning. She reports continued back pain and occasional numbness in her lower extremities. She has questions regarding surgery but considers it a last resort. She denies chest pain, shortness of breath, nausea, vomiting, diarrhea and constipation. All questions were answered. (Michelle Ariza MD R1) Objective Vitals Vital Signs Date Time Temp Pulse Resp B/P (MAP) Pulse Ox O2 Delivery O2 Flow Rate FiO2 10/10/17 16:06 97.9 58 17 111/55 (73) 97 10/10/17 15:19 95 21 10/10/17 11:40 97.3 61 18 108/66 (80) 96 10/10/17 08:06 97.9 54 17 94/52 (66) 94 10/10/17 04:00 97.8 57 18 115/57 (76) 97 10/10/17 00:00 97.7 56 18 92/48 (63) 95 10/09/17 20:00 97.8 66 18 99/57 (71) 97 I/O 10/09/17 10/09/17 10/09/17 10/10/17 10/10/17 10/10/17 07:00 15:00 23:00 07:00 15:00 23:00 Intake Total 480 ml Balance 480 ml Intake Oral 480 ml # Voids 3 # Bowel Movements 0 (Michelle Ariza MD R1) Result Diagram: 10/10/17 0750 10/10/17 0750 Imaging Last 72 hours Impressions Chest X-Ray 10/09/17 1138 Signed Impressions: Service Date/Time: Monday, October 09, 2017 11:59 - CONCLUSION: No acute disease. Alfonso Reyes MD FACR Thoracic Spine MRI 10/09/17 0000 Signed Impressions: Service Date/Time: Monday, October 09, 2017 20:12 - CONCLUSION: Minimal scattered disc changes without significant stenosis delineated above. Carlos Rey MD Lumbar Spine X-Ray 10/09/17 0000 Signed Impressions: Service Date/Time: Monday, October 09, 2017 22:03 - CONCLUSION: Minimal anterior subluxation of L4 and L5. No abnormal motion is detected. There appears to be fusion at the L4-L5 and L5-S1 facet joint. Surgical fasteners are present. Carlos Rey MD Lumbar Spine MRI 10/09/17 0000 Signed Impressions: Service Date/Time: Monday, October 09, 2017 20:12 - CONCLUSION: 1. Moderate to severe stenosis at the L3-L4 level. 2. Mild stenosis at the L4-L5 level. 3. Neural foraminal narrowing at the left L3-L4 level, bilaterally at the L4-L5 level, and at the right L5-S1 level. 4. Suspected postoperative cerclage wires or metallic density at the posterior element of L4 and L5. Carlos Rey MD Lumbar Spine MRI 10/09/17 0000 Signed Impressions: Service Date/Time: Monday, October 09, 2017 11:03 - CONCLUSION: Radiography significant spinal stenosis at the L3-4 level. Thecal sac at this level is obliterated. Alfonso Reyes MD FACR Cervical Spine MRI 10/09/17 0000 Signed Impressions: Service Date/Time: Monday, October 09, 2017 20:12 - CONCLUSION: 1. Moderate central to right-sided disc protrusion at the C5-C6 level abutting the anterior aspect of the cord. 2. Mild central to right-sided disc protrusion at the C6- C7 level. Carlos Rey MD Objective Remarks GENERAL: This is a well-nourished, well-developed patient, in no apparent distress. SKIN: Warm and dry. HEAD: Atraumatic. Normocephalic. EYES: Pupils equal round. Extraocular motions intact. No scleral icterus. No injection or drainage. ENT: Nose without bleeding, purulent drainage or septal hematoma. Airway patent. NECK: Supple, nontender, no meningeal signs. CARDIOVASCULAR: Regular rate and rhythm without murmurs, gallops, or rubs. RESPIRATORY: Clear to auscultation. Breath sounds equal bilaterally. No wheezes , rales, or rhonchi. GASTROINTESTINAL: Abdomen soft, non-tender, nondistended. No hepato-splenomegaly , or palpable masses. No guarding. MUSCULOSKELETAL: No calf tenderness. Calfs appear to be hypertrophied. NEUROLOGICAL: Awake and alert. Cranial nerves II through XII intact. Five out of 5 muscle strength in all muscle groups. Normal speech. Medications and IVs Current Medications Medications (Trade) Dose Ordered Sig/Jose Route Start Time Stop Time Status Last Admin (Lipitor) 80 mg HS PO 10/09/17 21:00 10/09/17 21:08 ([place] 10-325 Mg) 1 tab Q8HR PRN PO 10/09/17 13:00 10/10/17 14:21 (Synthroid) 150 mcg DAILY@0600 PO 10/09/17 13:00 10/10/17 06:33 (Prinivil) 20 mg DAILY PO 10/09/17 13:02 10/10/17 10:03 (Hydrodiuril) 12.5 mg DAILY PO 10/09/17 13:02 10/09/17 13:22 (NS Flush) 2 ml UNSCH PRN IV FLUSH 10/09/17 13:30 (NS Flush) 2 ml BID IV FLUSH 10/09/17 21:00 10/10/17 10:03 (Tylenol) 650 mg Q4H PRN PO 10/09/17 13:30 (Zofran Inj) 4 mg Q6H PRN IVP 10/09/17 13:30 (Ambien) 5 mg HS PRN PO 10/09/17 13:30 (Narcan Inj) 0.4 mg UNSCH PRN IV PUSH 10/09/17 13:30 (Milk Of Magnesia Liq) 30 ml Q12H PRN PO 10/09/17 13:30 (Senokot) 17.2 mg Q12H PRN PO 10/09/17 13:30 (Dulcolax Supp) 10 mg DAILY PRN RECTAL 10/09/17 13:30 (D50w (Vial) Inj) 50 ml UNSCH PRN IV PUSH 10/09/17 13:45 (Glucagon Inj) 1 mg UNSCH PRN OTHER 10/09/17 13:45 (NovoLOG SUPPLEMENTAL SCALE) 1 ACHS SLIDING SCALE SQ 10/09/17 17:00 10/10/17 11:47 (Michelle Ariza MD R1) Urinary Catheter: No (Michelle Ariza MD R1) Vascular Central Line Catheter: No (Michelle Ariza MD R1) A/P Assessment and Plan Patient is a 62 year old female with a significant past medical history of neurofibroma removal in 2012, DM2, and carpal tunnel who was admitted for evaluation of lower back pain with numbness and weakness of her lower extremities. Discharge Planning Pending neurosurgery clearance. (Michelle Ariza MD R1) Attending Attestation Patient seen and examined, discussed with resident team. I agree with assessment and management as documented and discussed with me. This note is written in conjunction with resident H&P dated 10/09/2017. Pt seen in the morning; she reports some sciatic pain unchanged from baseline and numbness as described in H&P. She confirms that she would like to try conservative therapy, if able prior to any surgeries. Await final decision from neurosurgery. PT to eval pt today. (Agustina Layton MD) Problem List: (1) Spinal stenosis ICD Codes: M48.00 - Spinal stenosis, site unspecified Status: Chronic Plan: Patient with lower back pain, numbness and weakness affecting her lower extremities. Per neurosurgery, this patient does not have a caude equine syndrome. She has spinal stenosis with lower extremity radiculopathy. Awaiting further recommendations from neurosurgery. MRI 09/2017: Significant spinal stenosis at L3-L4 level. Thecal sac at this level is obliterated. Previous MRI 01/2017: Dextroscoliosis of lower lumbar spine, disc herniation from L1-S1, narrowing of central canal impinging L3 root. No compression or marrow infiltration. (2) Bilateral sciatica ICD Codes: M54.31 - Sciatica, right side; M54.32 - Sciatica, left side Status: Chronic Plan: Associated with lumbar spinal stenosis. Consistent with pain in buttock and leg that is provoked by exercise and movement and relieved with forward bending. Awaiting neurosurgery and PT recommendations. (3) Shortness of breath on exertion ICD Codes: R06.02 - Shortness of breath Status: Chronic Plan: Pain versus early COPD versus CHF BNP: 43 Chest x-ray: Negative. No signs of peripheral edema or fluid overload to indicate advanced CHF. Continue pain medication. (4) Chronic hepatitis ICD Codes: K73.9 - Chronic hepatitis, unspecified Plan: Diagnosis in [address] abdomen reveals no signs of cirrhosis. LFTs WNL. Hep A and B studies nonreactive. Hep C reactive. Awaiting genotype and quantitative studies. (5) Diabetes ICD Codes: E11.9 - Type 2 diabetes mellitus without complications Plan: HgbA1C pending. Hold metformin Sliding scale insulin. (6) Hypothyroidism ICD Codes: E03.9 - Hypothyroidism, unspecified Status: Acute Plan: Patient with history of hypothyroidism. TSH 3.280. * Continue home meds. (7) Hypertension ICD Codes: I10 - Essential (primary) hypertension Status: Chronic Plan: Patient with history of hypertension. * Continue home meds. (8) fen/ppx Status: Chronic Plan: Fluids: * Tolerates PO. Electrolytes: * Monitor and replete as necessary. Nutrition: * Regular diet. GI prophylaxis: * Protonix 40mg PO daily. DVT prophylaxis: * JAMA and SCDs. (Michelle Ariza MD R1) Michelle Ariza MD R1 Oct 10, 2017 16:41 Agustina Layton MD Oct 11, 2017 06:48
[2017-10-10] MEDS: PANTOPRAZOLE SOD 40 MG DELAYED RELEASE TAB PO SCH (17:20)
[2017-10-10] MEDS: ATORVASTATIN 80 MG TAB PO SCH (22:50)
[2017-10-11 06:14] LABS: HEMATOCRIT 37.2 % (35.0-46.0); MEAN CELL VOLUME 93.9 FL (80.0-100.0); MEAN CORPUSCULAR HGB CONC 35.1 % (32.0-36.0); MEAN PLATELET VOLUME 7.6 FL (7.0-11.0); PLATELET COUNT 244 TH/MM3 (150-450); RED BLOOD COUNT 3.96 MIL/MM3 (4.00-5.30); RED CELL DISTRIBUTION WIDTH 12.5 % (11.6-17.2); WHITE BLOOD COUNT 6.7 TH/MM3 (4.0-11.0)
[2017-10-11] MEDS: LEVOTHYROXINE SODIUM 150 MCG TAB PO SCH (06:29)
[2017-10-11 06:43] LABS: BICARBONATE 26.9 MEQ/L (21.0-32.0); CALCIUM 8.5 MG/DL (8.5-10.1); CREATININE 0.68 MG/DL (0.50-1.00)
[2017-10-11] MEDS: INSULIN ASPART SUPPLEMENTAL SCALE SQ SCH ×2 (08:00→12:00)
[2017-10-11 08:12] VITALS: BP 118/56; PULSE 59; RESP 17; TEMP 97.9; O2SAT 95
[2017-10-11] MEDS: MAGNESIUM HYDROXIDE SUSP 30 ML CUP PO PRN (08:19)
[2017-10-11] MEDS: ACETAMINOPHEN/HYDROcodone 325 MG/10 MG TAB PO PRN (08:19)
[2017-10-11] MEDS: SODIUM CHLORIDE 0.9% FLUSH 10 ML FLUSH IV FLUSH SCH (08:20)
[2017-10-11] MEDS: HYDROCHLOROTHIAZIDE 25 MG TAB PO SCH (08:20)
[2017-10-11] MEDS: PANTOPRAZOLE SOD 40 MG DELAYED RELEASE TAB PO SCH (08:20)
[2017-10-11] MEDS: LISINOPRIL 20 MG TAB PO SCH (08:20)
--- NOTE | 2017-10-11 09:54 | HHI.FPPN ---
Subjective Remarks Patient seen and examined bedside this morning. No acute events overnight. The patient continues to have the same amount of back and leg pain. She has spoken with the neurosurgeon and the decision has been made for her to be discharged home and then follow-up as an outpatient for neurosurgery. (Zena Matamoros MD R2) Objective Vitals Vital Signs Date Time Temp Pulse Resp B/P (MAP) Pulse Ox O2 Delivery O2 Flow Rate FiO2 10/11/17 08:12 97.9 59 17 118/56 (76) 95 10/10/17 23:07 97.5 51 17 105/51 (69) 97 10/10/17 19:47 97.2 66 17 127/67 (87) 96 10/10/17 16:06 97.9 58 17 111/55 (73) 97 10/10/17 15:19 95 21 10/10/17 11:40 97.3 61 18 108/66 (80) 96 I/O 10/10/17 10/10/17 10/10/17 10/11/17 10/11/17 10/11/17 07:00 15:00 23:00 07:00 15:00 23:00 Intake Total 480 ml 1300 ml 360 ml Balance 480 ml 1300 ml 360 ml Intake Oral 480 ml 1300 ml 360 ml # Voids 3 3 3 # Bowel Movements 0 1 0 (Zena Matamoros MD R2) Result Diagram: 10/11/17 0557 10/11/17 0557 Objective Remarks GENERAL: This is a well-nourished, well-developed patient, in no apparent distress. SKIN: Warm and dry. HEAD: Atraumatic. Normocephalic. EYES: Pupils equal round. Extraocular motions intact. No scleral icterus. No injection or drainage. ENT: Nose without bleeding, purulent drainage or septal hematoma. Airway patent. NECK: Supple, nontender, no meningeal signs. CARDIOVASCULAR: Regular rate and rhythm without murmurs, gallops, or rubs. RESPIRATORY: Clear to auscultation. Breath sounds equal bilaterally. No wheezes , rales, or rhonchi. GASTROINTESTINAL: Abdomen soft, non-tender, nondistended. No hepato-splenomegaly , or palpable masses. No guarding. MUSCULOSKELETAL: No calf tenderness. Calfs appear to be hypertrophied. NEUROLOGICAL: Awake and alert. Cranial nerves II through XII intact. Five out of 5 muscle strength in all muscle groups. Normal speech. (Zena Matamoros MD R2) A/P Assessment and Plan Patient is a 62 year old female with a significant past medical history of neurofibroma removal in 2012, DM2, and carpal tunnel who was admitted for evaluation of lower back pain with numbness and weakness of her lower extremities. Discharge Planning Discharge today (Zena Matamoros MD R2) Attending Attestation Patient seen and examined, discussed with resident team. I agree with assessment and management as documented and discussed with me. Pt has decided to have neurosurgery, but has opted to return home first for a few days and follow up with neurology as an outpatient. Discharge home today. (Agustina Layton MD) Problem List: (1) Spinal stenosis ICD Codes: M48.00 - Spinal stenosis, site unspecified Status: Chronic Plan: Patient with lower back pain, numbness and weakness affecting her lower extremities. Per neurosurgery, this patient does not have a caude equine syndrome. She has spinal stenosis with lower extremity radiculopathy. Neurosurgery recommendations: Discharge and follow-up as outpatient MRI 09/2017: Significant spinal stenosis at L3-L4 level. Thecal sac at this level is obliterated. Previous MRI 01/2017: Dextroscoliosis of lower lumbar spine, disc herniation from L1-S1, narrowing of central canal impinging L3 root. No compression or marrow infiltration. (2) Bilateral sciatica ICD Codes: M54.31 - Sciatica, right side; M54.32 - Sciatica, left side Status: Chronic Plan: Associated with lumbar spinal stenosis. Consistent with pain in buttock and leg that is provoked by exercise and movement and relieved with forward bending. See plan above (3) Shortness of breath on exertion ICD Codes: R06.02 - Shortness of breath Status: Chronic Plan: Pain versus early COPD versus CHF BNP: 43 Chest x-ray: Negative. No signs of peripheral edema or fluid overload to indicate advanced CHF. Continue pain medication. (4) Chronic hepatitis ICD Codes: K73.9 - Chronic hepatitis, unspecified Plan: Diagnosis in [address] abdomen reveals no signs of cirrhosis. LFTs WNL. Hep A and B studies nonreactive. Hep C reactive. f/u HCV RNA PCR as outpatient. (5) Diabetes ICD Codes: E11.9 - Type 2 diabetes mellitus without complications Plan: HgbA1C: 6.3 Hold metformin Sliding scale insulin. (6) Hypothyroidism ICD Codes: E03.9 - Hypothyroidism, unspecified Status: Acute Plan: Patient with history of hypothyroidism. TSH 3.280. * Continue home meds. (7) Hypertension ICD Codes: I10 - Essential (primary) hypertension Status: Chronic Plan: Patient with history of hypertension. * Borderline hypotension during admission * Will D/C patient on decreased dose of BP meds, will follow up with PCP in office (myself) * Pt advised to do blood pressure log and bring to next PCP visit on 11/07 (8) fen/ppx Status: Chronic Plan: Fluids: * Tolerates PO. Electrolytes: * Monitor and replete as necessary. Nutrition: * Regular diet. GI prophylaxis: * Protonix 40mg PO daily. DVT prophylaxis: * JAMA and SCDs. (Zena Matamoros MD R2) Zena Matamoros MD R2 Oct 11, 2017 09:53 Agustina Layton MD Oct 11, 2017 21:53
[2017-10-11] MEDS ORDERED: LISI10TA PO (09:59)
--- NOTE | 2017-10-11 09:59 | HHI.DCPOC ---
Discharge Care Plan Diagnosis: (1) Bilateral sciatica (2) Spinal stenosis Goals to Promote Your Health * To prevent worsening of your condition and complications * To maintain your health at the optimal level Directions to Meet Your Goals Take your medications as prescribed Follow your dietary instruction Follow activity as directed Keep your appointments as scheduled Take your immunizations and boosters as scheduled If your symptoms worsen call your PCP, if no PCP go to Urgent Care Center or Emergency Room Smoking is Dangerous to Your Health. Avoid second hand smoke Call the 24-hour hour crisis hotline for domestic abuse at Zena Matamoros MD R2 Oct 11, 2017 09:59
--- NOTE | 2017-10-11 10:00 | HHI.DS ---
Discharge Summary Admission Date Oct 09, 2017 at 12:14 Discharge Date: Oct 11, 2017 Admitting Diagnosis Cauda Equina Syndrome (1) Spinal stenosis Plan: Patient with lower back pain, numbness and weakness affecting her lower extremities. Per neurosurgery, this patient does not have a caude equine syndrome. She has spinal stenosis with lower extremity radiculopathy. Awaiting further recommendations from neurosurgery. MRI 09/2017: Significant spinal stenosis at L3-L4 level. Thecal sac at this level is obliterated. Previous MRI 01/2017: Dextroscoliosis of lower lumbar spine, disc herniation from L1-S1, narrowing of central canal impinging L3 root. No compression or marrow infiltration. ICD Codes: M48.00 - Spinal stenosis, site unspecified Status: Chronic (2) Bilateral sciatica Plan: Associated with lumbar spinal stenosis. Consistent with pain in buttock and leg that is provoked by exercise and movement and relieved with forward bending. Awaiting neurosurgery and PT recommendations. ICD Codes: M54.31 - Sciatica, right side; M54.32 - Sciatica, left side Status: Chronic (3) Shortness of breath on exertion Plan: Pain versus early COPD versus CHF BNP: 43 Chest x-ray: Negative. No signs of peripheral edema or fluid overload to indicate advanced CHF. Continue pain medication. ICD Codes: R06.02 - Shortness of breath Status: Chronic (4) Chronic hepatitis Plan: Diagnosis in [address] abdomen reveals no signs of cirrhosis. LFTs WNL. Hep A and B studies nonreactive. Hep C reactive. Awaiting genotype and quantitative studies. ICD Codes: K73.9 - Chronic hepatitis, unspecified (5) Diabetes Plan: HgbA1C pending. Hold metformin Sliding scale insulin. ICD Codes: E11.9 - Type 2 diabetes mellitus without complications (6) Hypothyroidism Plan: Patient with history of hypothyroidism. TSH 3.280. * Continue home meds. ICD Codes: E03.9 - Hypothyroidism, unspecified Status: Acute (7) Hypertension Plan: Patient with history of hypertension. * Continue home meds. ICD Codes: I10 - Essential (primary) hypertension Status: Chronic (8) fen/ppx Plan: Fluids: * Tolerates PO. Electrolytes: * Monitor and replete as necessary. Nutrition: * Regular diet. GI prophylaxis: * Protonix 40mg PO daily. DVT prophylaxis: * JAMA and SCDs. Status: Chronic Brief History 62 y/o F, hx of neurofibroma removal in 2013, DM2, and carpal tunnel, is sent into ED from clinic with chief complaint of numbness and tingling in groin area. She started feeling currents down the back of her legs (shooting pains) 3- 4 months ago alongside the groin symptoms. She has not had any imaging done in the interim although we had ordered imaging in clinic. She also has noticed change in urination; she awakens frequently overnight to urinate, doesn't always make it to the bathroom in time. No change in bowel movements has been noticed. She denies any change in her back pain, and it has stayed at a 3/10 pain (also controlled by [place] 10 3-4x/day).She has experienced worsening pain down the back of her legs and calfs over the last 3-4 months. The pain is 6/10 and comes along with the currents. She has numbness/tingling from her feet to her groin area; with her legs and buttocks being the most numb. She also admits to occasional numbness and tingling in her arms. She states this does feel similar to her carpal tunnel sx in the past. She has chronically had issues walking since her surgery in 2012, with the biggest obstacle being the leg pain. The type of leg pain has changed in the last 3-4 months, with the addition of shooting electrical currents. CBC/BMP: 10/11/17 0557 10/11/17 0557 Significant Findings Laboratory Tests Test 10/09/17 11:54 10/09/17 14:48 10/09/17 18:55 10/10/17 07:50 Calcium Level 8.4 MG/DL (8.5-10.1) Estimat Glomerular Filtration Rate 80 ML/MIN (>89) 88 ML/MIN (>89) Total Creatine Kinase 208 U/L (26-192) Troponin I LESS THAN 0.02 NG/ML Hemoglobin A1c 6.3 % (4.3-6.0) Hepatitis C IgG Antibody REACTIVE (NONREACTIVE) Urine Mucus FEW /lpf (OCC) Random Glucose 111 MG/DL (74-106) Test 10/11/17 05:57 Red Blood Count 3.96 MIL/MM3 (4.00-5.30) Chloride Level 108 MEQ/L (98-107) Estimat Glomerular Filtration Rate 88 ML/MIN (>89) PE at Discharge GENERAL: This is a well-nourished, well-developed patient, in no apparent distress. SKIN: Warm and dry. HEAD: Atraumatic. Normocephalic. EYES: Pupils equal round. Extraocular motions intact. No scleral icterus. No injection or drainage. ENT: Nose without bleeding, purulent drainage or septal hematoma. Airway patent. NECK: Supple, nontender, no meningeal signs. CARDIOVASCULAR: Regular rate and rhythm without murmurs, gallops, or rubs. RESPIRATORY: Clear to auscultation. Breath sounds equal bilaterally. No wheezes , rales, or rhonchi. GASTROINTESTINAL: Abdomen soft, non-tender, nondistended. No hepato-splenomegaly , or palpable masses. No guarding. MUSCULOSKELETAL: No calf tenderness. Calfs appear to be hypertrophied. NEUROLOGICAL: Awake and alert. Cranial nerves II through XII intact. Five out of 5 muscle strength in all muscle groups. Normal speech. Hospital Course 62 y/o F, hx of neurofibroma removal in 2012, DM2, and carpal tunnel, presents to ED for numbness and weakness of lower extremities. Patient was admitted for neurosurgical evaluation, and per neurosurgery this was not cauda equina symptoms. Neurosurgery cleared the patient for discharge and for follow-up as an outpatient. Over the hospitalization the patient had noted that she has chronic shortness of breath, and chest x-ray and BNP revealed that the patient does not have any CHF or fluid overload. Pt Condition on Discharge: Stable Discharge Disposition: Discharge Home Discharge Instructions DIET: Follow Instructions for: As Tolerated, No Restrictions Activities you can perform: Regular-No Restrictions New Medications: Lisinopril-Hctz (Lisinopril-Hctz) 10-12.5 Mg Tab 1 TAB PO DAILY for Blood Pressure Management, #30 TAB 0 Refills Continued Medications: Atorvastatin (Atorvastatin) 80 Mg Tab 80 MG PO HS for Cholesterol Management, #30 TAB 5 Refills Hydrocodone-Acetaminophen ([place]) 10-325 Mg Tab 1 TAB PO Q8HR PRN for PAIN, #60 TAB 0 Refills Levothyroxine (Levothyroxine) 150 Mcg Tab 150 MCG PO DAILY for Thyroid, #30 TAB 3 Refills Metformin (Metformin) 850 Mg Tab 850 MG PO DAILY for Blood Sugar Management, #30 TAB 5 Refills With a meal Discontinued Medications: Lisinopril-Hctz (Lisinopril-Hctz) 20-12.5 Mg Tab 1 TAB PO DAILY for Blood Pressure Management, #30 TAB 0 Refills Zena Matamoros MD R2 Oct 11, 2017 10:00
[2017-10-17 10:13] LABS: HCV RNA PCR IU/ML LESS THAN 15 IU/mL (Not Detected)
== END 2017-10-11 12:46 | disposition home or self-care (01) ==
LOC: NEPD 09:52 → INTOOBSV 12:14 → NEDA 12:14 → N06B 13:57
PROVIDERS: ADMIT Family Medicine; ATTEND Family Medicine
DX: G83.4 Cauda equina syndrome (principal); M54.31 Sciatica, right side; M54.32 Sciatica, left side; M48.061 Spinal stenosis, lumbar region without neurogenic claudication; M41.86 Other forms of scoliosis, lumbar region; R06.02 Shortness of breath; M50.223 Other cervical disc displacement at C6-C7 level; I44.0 Atrioventricular block, first degree; I45.81 Long QT syndrome; R94.31 Abnormal electrocardiogram [ECG] [EKG]; R20.0 Anesthesia of skin; I11.0 Hypertensive heart disease with heart failure; I50.9 Heart failure, unspecified; K73.9 Chronic hepatitis, unspecified; E11.41 Type 2 diabetes mellitus with diabetic mononeuropathy; E03.9 Hypothyroidism, unspecified; E78.5 Hyperlipidemia, unspecified; E55.9 Vitamin D deficiency, unspecified; B19.20 Unspecified viral hepatitis C without hepatic coma; I95.9 Hypotension, unspecified
CPT/HCPCS: 71046; 72120; 72141; 72148; 72149; 72157; 80048; 80053; 80074; 81001; 82105; 82550; 82552; 82948; 83036; 83735; 83880; 84443; 84484; 85025; 85027; 85610; 85730; 87522; 87902; 93005; 97161; 97167; 99285; A9579; G0378; G8987; G8988; G8989; J1815

== ENCOUNTER → 2017-11-16 | Outpatient (CLI) | payer MEDICARE ==
[~2017-11-16] MED LIST changes: +LISI10TA PO; -LISI20TA PO; +VITA1000 PO
== END ==
LOC: CPRE 10:30
PROVIDERS: ATTEND Neurological Surgery
DX: Z01.812 Encounter for preprocedural laboratory examination (principal); M43.10 Spondylolisthesis, site unspecified
CPT/HCPCS: 87640; 87641

== ENCOUNTER 2017-11-22 06:18 | Inpatient (IN) | payer MEDICARE ==
[~2017-11-22] VITALS: Ht 160 cm; Wt 107.0 kg
[2017-11-22] MEDS ORDERED: PROPOFOL 500 MG/50 ML INJ 200 ML ONE (06:56)
[2017-11-22] MEDS ORDERED: ACETAMINOPHEN 1000 MG/100 ML 100 ML IV ONE (06:57)
[2017-11-22] MEDS ORDERED: MIDAZOLAM HCL 2 MG/2 ML VIAL ONE (06:59)
[2017-11-22] MEDS ORDERED: fentaNYL CITRATE 250 MCG/5 ML AMP ONE (06:59)
[2017-11-22] MEDS ORDERED: CHLORHEXIDINE GLUCONATE 2 % 1 PACK (2 CLOTHS) TOPICAL PRN (07:00)
[2017-11-22] MEDS ORDERED: LACTATED RINGER'S 1000 ML IV PRN (07:00)
[2017-11-22] MEDS ORDERED: METOPROLOL TARTRATE 25 MG TAB PO PRN (07:00)
[2017-11-22] MEDS ORDERED: VANCOMYCIN 1 GM/200 ML PREMIX ON-CALL IV SCH (07:00)
[2017-11-22] MEDS ORDERED: SODIUM CHLOR 0.9% 1000 ML INJ 1,000 ML IV SCH (07:00)
[2017-11-22] MEDS ORDERED: SODIUM CHLORID 0.9% 500 ML IV PRN (07:00)
[2017-11-22] MEDS ORDERED: POVIDONE IODINE 5% (ANTISEPSIS KIT) 4 APPLICATIONS EACH NARE PRN (07:00)
[2017-11-22] MEDS ORDERED: ceFAZolin 2 GM PREMIX 50 ML ONE (07:06)
[2017-11-22] MEDS ORDERED: THROMBIN (TOPICAL) 5,000 UNIT VIAL ONE (07:06)
[2017-11-22] MEDS ORDERED: GELFOAM SIZE 100 ONE (07:06)
[2017-11-22] MEDS ORDERED: GENTAMICIN SULFATE 80 MG/2 ML VIAL ONE ×2 (07:06→14:05)
[2017-11-22] MEDS ORDERED: BUPIVACAINE/EPINEPHRINE 0.5% PF 10 ML VIAL ONE (07:06)
[2017-11-22] MEDS ORDERED: VANCOMYCIN 500 MG VIAL ONE (07:06)
[2017-11-22] MEDS ORDERED: DEXAMETHASONE SOD PHOS 4 MG/ML VIAL IV ONE (12:00)
[2017-11-22] MEDS ORDERED: ePHEDrine/NS 25 MG/5 ML SYRINGE IV ONE (12:00)
[2017-11-22] MEDS ORDERED: ESMOLOL HCL 100 MG/10 ML VIAL IV ONE (12:00)
[2017-11-22] MEDS ORDERED: ROCURONIUM INJ 50 MG/5 ML SYRINGE IV PUSH ONE (12:00)
[2017-11-22] MEDS ORDERED: SODIUM CHLOR 0.9% 250 ML INJ 250 ML IV ONE (12:00)
[2017-11-22] MEDS ORDERED: LACTATED RINGER'S 1000 ML INJ 2,000 ML IV ONE (12:00)
[2017-11-22] MEDS ORDERED: PHENYLEPH/NS 1000 MCG/10 ML SYR IV ONE (12:00)
[2017-11-22] MEDS ORDERED: ONDANSETRON HCL 4 MG/2 ML VIAL IV PUSH ONE (12:00)
[2017-11-22] MEDS ORDERED: ceFAZolin INJ 1,000 MG VIAL IV ONE (12:00)
[2017-11-22] MEDS ORDERED: LIDOCAINE HCL 1% PF 5 ML SYRINGE OTHER ONE (12:00)
[2017-11-22] MEDS ORDERED: PROPOFOL 200 MG/20 ML AMP IV ONE (12:00)
[2017-11-22] MEDS ORDERED: ONDANSETRON ODT 4 MG TAB PO PRN (14:30)
[2017-11-22] MEDS ORDERED: MORPHINE SULFATE 4 MG/ML INJ IV PUSH PRN (14:30)
[2017-11-22] MEDS ORDERED: cloNIDine HCL 0.1 MG TAB PO/NG PRN (14:30)
[2017-11-22] MEDS ORDERED: RESP: ALBUTEROL 2.5 MG/3 ML NEB (PRN) INH (14:30)
[2017-11-22] MEDS ORDERED: ACETAMINOPHEN 325 MG TAB PO PRN (14:30)
[2017-11-22] MEDS ORDERED: MAGNESIUM HYDROXIDE SUSP 30 ML CUP PO PRN (14:30)
[2017-11-22] MEDS ORDERED: diphenhydrAMINE HCL 50 MG/ML VIAL IV PUSH PRN (14:30)
[2017-11-22] MEDS ORDERED: MENTHOL LOZENGE BUCCAL PRN (14:30)
[2017-11-22] MEDS ORDERED: NALOXONE HCL 0.4 MG/ML AMP IV PUSH PRN (14:30)
[2017-11-22] MEDS ORDERED: BISACODYL 10 MG SUPP RECTAL PRN (14:30)
[2017-11-22] MEDS ORDERED: CYCLOBENZAPRINE HCL 10 MG TAB PO PRN (14:30)
[2017-11-22] MEDS ORDERED: DO NOT ADM ANY ANTICOAGULANT DRUGS PRN (14:57)
[2017-11-22] MEDS: SODIUM CHLOR 0.9% 1000 ML INJ 1,000 ML IV SCH (15:00)
[2017-11-22] MEDS ORDERED: *MEPERIDINE 25 MG INJ VIAL PERIprocedural Use ONLY ONE (15:13)
[2017-11-22] MEDS: HYDROmorphone HCL PCA 6 MG/30 ML IV SCH ×2 (15:20→21:45)
--- NOTE | 2017-11-22 15:34 | PD.CONS ---
HPI Service Family Medicine Consult Requested By Neurosurgery Reason for Consult Medical management Primary Care Physician Dr. Draper History of Present Illness Patient is postop day 0 status post L3-L4 hemilaminectomy. Presently, her only complaint is back pain at the surgical site. She currently denies any headache , numbness, tingling, radiation of pain, neurological problems, chest pain, palpitations, racing heart, shortness of breath, abdominal pain, leg pain, pain anywhere else in her back. Review of Systems Other Denies fever or chills No polyuria, polydipsia Denies vision changes, eye pain, hearing changes, rhinorrhea, sore throat Denies sore throat, runny nose, cough No chest pain, palpitations, shortness of breath No abdominal pain Denies constipation, diarrhea, nausea, vomiting, black or bloody stools No dysuria, hematuria Except for surgical site, denies muscle/joint pain, weakness, headache No rashes, itching Past Family Social History Past Medical History Hypothyroidism HTN Diabetes Hyperlipidemia Vitamin D Deficiency Chronic back pain, s/p fibroma removal - nerve compression - handled by neurosurgery Acute disc herniation hx of Hep C Past Surgical History neurosurgical neurofibroma removal 2012, last saw neurosurgeon in 2015 - was recommended to find neurosurgeon here in [facility] and do yearly MRI Cholecystectomy - Carpal Tunnel - bilateral, in [facility] for SAB Multiple endoscopies and colonoscopy + polyp removal EGD with esophageal dilation in 06/2017 - benign-appearing Reported Medications Reported Meds & Active Scripts Active Lisinopril-Hctz 10-12.5 Mg Tab 1 Tab PO DAILY Levothyroxine (Levothyroxine Sodium) 150 Mcg Tab 150 Mcg PO DAILY [place] (Hydrocodone-Acetaminophen) 10-325 Mg Tab 1 Tab PO Q8HR PRN Atorvastatin (Atorvastatin Calcium) 80 Mg Tab 80 Mg PO HS Metformin (Metformin HCl) 850 Mg Tab 850 Mg PO DAILY With a meal Reported Vitamin D-1000 (Cholecalciferol) 1,000 Unit Tab 1,000 Units PO DAILY Allergies: Coded Allergies: No Known Allergies (Verified Allergy, Unknown, 11/22/17) Active Ordered Medications Current Medications Medications (Trade) Dose Ordered Sig/Jose Route Start Time Stop Time Status Last Admin Vancomycin/Sodium Chloride 200 ml @ 200 mls/hr PRISM MEASURER IV 11/22/17 07:00 11/25/17 06:59 11/22/17 08:08 (Lopressor) 25 mg PRISM MEASURER PRN PO 11/22/17 07:00 11/25/17 06:59 (Betadine 5% Antisepsis Kit) 1 applic PRISM MEASURER PRN EACH NARE 11/22/17 07:00 11/25/17 06:59 11/22/17 08:08 (Chlorhexidine 2% Cloth) 3 pack PRISM MEASURER PRN TOPICAL 11/22/17 07:00 11/25/17 06:59 11/22/17 07:30 Sodium Chloride 1,000 ml @ 100 mls/hr Q10H IV 11/22/17 15:00 11/22/17 15:00 Cefazolin Sodium/ Dextrose 50 ml @ 100 mls/hr Q8H IV 11/22/17 21:00 11/23/17 13:29 (Dulcolax Supp) 10 mg DAILY PRN RECTAL 11/22/17 14:30 (Colace) 100 mg BID PO 11/22/17 21:00 (Milk Of Magnesia Liq) 30 ml DAILY PRN PO 11/22/17 14:30 (Protonix) 40 mg DAILY PO 11/23/17 09:00 (Zofran Odt) 4 mg Q6H PRN PO 11/22/17 14:30 (Morphine Inj) 2 mg Q2H PRN IV PUSH 11/22/17 14:30 (Flexeril) 10 mg Q8H PRN PO 11/22/17 14:30 (Catapres) 0.1 mg Q6H PRN PO/NG 11/22/17 14:30 (Tylenol) 650 mg Q4H PRN PO 11/22/17 14:30 (Revillo Vance) 1 lozenge UNSCH PRN BUCCAL 11/22/17 14:30 (Albuterol Neb) 2.5 mg Q4HR NEB PRN INH 11/22/17 14:30 (Hibiclens 4% Top Soln) 1 applic HS TOP 11/22/17 21:00 11/24/17 21:01 (Narcan Inj) 0.4 mg UNSCH PRN IV PUSH 11/22/17 14:30 (Benadryl Inj) 25 mg Q6H PRN IV PUSH 11/22/17 14:30 (Dilaudid ALMOND SORTER Inj) 6 mg UNSCH IV 11/22/17 14:30 11/22/17 15:20 ALMOND SORTER Dosage Infused (Pha) 1 Q8HR .XX 11/22/17 22:00 ([place] 10-325 Mg) 1 tab Q4H PRN PO 11/22/17 14:30 ([place] 10-325 Mg) 2 tab Q4H PRN PO 11/22/17 14:30 ([facility] [place] Nursing Information) ALL NURSING DEPARTME... UNSCH PRN .XX 11/22/17 14:57 11/23/17 14:56 Family History Dad - renal carcinoma Mom's side - heart disease Social History stopped smoking 5 years ago - smoked 1/2 ppd x 30 years,denies drinking or any drug use lives in a mobile home here with Physical Exam Vital Signs Vital Signs Date Time Temp Pulse Resp B/P (MAP) Pulse Ox O2 Delivery O2 Flow Rate FiO2 11/22/17 15:20 16 11/22/17 07:50 97.7 78 20 131/76 (94) 96 Physical Exam GENERAL: This is a well-nourished, well-developed obese female patient, tired after being transferred from PACU and in no apparent distress. SKIN: No rashes, ecchymoses or lesions. Cool and dry. HEAD: Atraumatic. Normocephalic. EYES: Pupils equal round and reactive. Extraocular motions intact. No scleral icterus. No injection or drainage. ENT: Nose without bleeding, purulent drainage or septal hematoma. Throat without erythema, tonsillar hypertrophy or exudate. Uvula midline. Airway patent. NECK: Trachea midline. No JVD or lymphadenopathy. Supple, nontender, no meningeal signs. CARDIOVASCULAR: Regular rate and rhythm without murmurs, gallops, or rubs. RESPIRATORY: Clear to auscultation. Breath sounds equal bilaterally. No wheezes , rales, or rhonchi. GASTROINTESTINAL: Abdomen soft, non-tender, nondistended. No rebounding or guarding. MUSCULOSKELETAL: Extremities without clubbing, cyanosis, or edema. No joint tenderness, effusion, or edema noted. No calf tenderness. 2+ posterior tibial pulses bilaterally. Good capillary refill in toes bilaterally. BACK: Grossly normal, nontender to palpation. Did not palpate surgical site over which dressing is clean, dry, intact. NEUROLOGICAL: Awake and alert. Cranial nerves II through XII grossly intact. Motor and sensory grossly within normal limits. Normal speech. Course Patient is postop day 0 status post L3-L4 hemilaminectomy Assessment and Plan Assessment and Plan Patient is a 62-year-old female with a history of spinal stenosis, chronic hepatitis C, diabetes, hypothyroidism, hypertension who is postop day 0 status post L3-L4 hemilaminectomy. There is a patient of Dr. Draper. Medicine consult requested by neurosurgery for medical management. Code Status Full code Problem List: (1) Spinal stenosis ICD Codes: M48.00 - Spinal stenosis, site unspecified Status: Chronic Plan: Patient is postop day 0 status post L3-L4 hemilaminectomy. Patient currently on ALMOND SORTER. -Pain control per neurosurgery -SCD and incentive spirometry -Monitor vital signs, intake and output (2) Diabetes ICD Codes: E11.9 - Type 2 diabetes mellitus without complications Plan: -Low dose sliding scale insulin -Blood glucose monitoring -Hypoglycemia protocol ordered (3) Hypothyroidism ICD Codes: E03.9 - Hypothyroidism, unspecified Status: Acute Plan: -Continue home medication of levothyroxine 150 mcg p.o. daily (4) Hypertension ICD Codes: I10 - Essential (primary) hypertension Status: Chronic Plan: -Continue home medication of lisinopril-HCTZ 10-12.5 mg p.o. daily (5) Hypercholesterolemia ICD Codes: E78.00 - Pure hypercholesterolemia, unspecified Plan: -Continue home medication of atorvastatin 80 mg p.o. nightly (6) fen/ppx Status: Chronic Plan: Fluids: Maintenance fluids with normal saline IV Electrolytes: Monitor and replete Nutrition: Advance diet as tolerated, heart healthy diet ordered GI prophylaxis: Bowel regimen ordered (7) Contraindication to anticoagulation therapy ICD Codes: Z53.09 - Procedure and treatment not carried out because of other contraindication Plan: Patient is postop day 0. Thus chemical anticoagulation is contra indicated. -SCDs bilaterally Jose Wiggins MD R2 November 22, 2017 15:34
[2017-11-22 16:00] VITALS: BP 84/52; PULSE 81; RESP 16; TEMP 97.8; O2SAT 92
[2017-11-22] MEDS ORDERED: GLUCAGON 1 MG/ML VIAL OTHER PRN (16:15)
[2017-11-22] MEDS ORDERED: DEXTROSE 50% IN WATER 50 ML VIAL(D50) IV PUSH PRN (16:15)
--- NOTE | 2017-11-22 16:28 | RADRPT ---
EXAM DATE: 11/22/2017 4:25 PM EDT AGE/SEX: 62 years / Female INDICATIONS: L3-4 fusion. CLINICAL DATA: This is the patient's initial encounter. Patient reports that signs and symptoms have been present for 1 day and indicates a pain score of Nonresponsive. MEDICAL/SURGICAL HISTORY: Non-responsive. Non-responsive. COMPARISON: No prior [facility] exams available for comparison. CONCLUSION: Fluoroscopic images during placement of posterior screws/rods at L3-4 with intervertebral disc device . Electronically signed by: Bill Byrnes MD 11/22/2017 4:26 PM EDT
--- NOTE | 2017-11-22 16:54 | PD.OP ---
Operative Report Date of Surgery: November 22, 2017 Preoperative Diagnosis: lumbar degenerative disk disease with intractable mechanical back pain and radiculopathy Postoperative Diagnosis: lumbar degenerative disk disease with intractable mechanical back pain and radiculopathy Procedure: L3-L4 laminectomy, interbody arthrodhesis using PEEK cage and autologous bone graft, L4-5 instrumental fixation using transpedicular screws and rods, L3-4 posterolateral fusion using autologous bone iraj. Microsurgical dissection Anesthesia: general Surgeon: Laron Jordan Parts Salesperson(s): Britt Li Operation and Findings: INDICATIONS FOR PROCEDURE ms shaffer is a 62 year-old female who presented with intractable mechanical back pain and geovanni evidence of lower extremity L4 radiculopathy. 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 She failed maximum nonsurgical management including multiple modalities of conservative treatment as well as pain management interventions by an interventional pain specialist. The patient has undergone a previous surgical procedure. A redo surgical decompression and arthrodhesis were indicated as a last resort. The [id number] details of the procedure, indications, alternatives, risks and potential complications were fully discussed with the patient. The patient fully understood. All the questions were answered. No guarantees were given. The patient voiced requesting the procedure and provided informed consents. The patient was offered the alternative of delaying the procedure and continuing with nonsurgical management. DETAILS OF THE SURGICAL PROCEDURE Prior to the procedure, the surgical incision was marked in the preoperative surgical holding room, and the procedure, risks, and potential complications revisited with the patient. Placement of electrodes for intraoperative neurophysiological monitoring was completed. The patient was taken to the operative room, and following induction of general anesthesia, endotracheal intubation was performed. A Saxena catheter, bilateral JAMA hose and sequential compression devices were placed and kept throughout the procedure. The patient was positioned prone, over a Otoniel table over a bolsters. All pressure in the preoperative surgical holding room points were carefully padded with eggcrate and gel mattress. The eyes were tapped shut after ointment was applied by the anesthesiologist to prevent corneal abrasion. A Manny hugger was placed over the expossed lower body to maintain control of the core body temperature. The electrophysiological team placed the needles and electrodes in their proper location and baseline SSEP's and motor evoked potentials were registered. The entrance to each pedicles was marked using a C arm. The lumbar region was prepped and draped in the usual sterile fashion. The surgical procedure was performed in several steps as follow: SURGICAL APPROACH Once the patient was positioned, a localizing cross-table lateral x-ray was performed with a C-arm. Two paramedian small incisions were outlined on the skin approximately 3cm from the midline. The skin incisions were made with a # 10 blade. Small bleeders were controlled with the cautery. The dissection was then carried out into deeper planes and through the thoracolumbar fascia with a Bovie. The intermuscular septum was identified and the muscles were blunted dissected along the septum. The facets and transverse process of L3-L4 were exposed and the proper anatomical landmarks were identified. A microsurgical self-retaining retractor was placed on the incision, and a localizing lateralizing cross-table x-ray was performed with an instrument underneath a lamina of the lumbar spine. INSTRUMENTAL FIXATION At this point in the procedure, placement of bilateral transpedicular screws was necessary for stabilization of the spine. Initially, the entry point for the screw was selected anatomically at the junction of the facet, with the transverse process, and the pars interarticularis at L3-L4. This was started with a Giamshetti needle, followed by the use of an donaldson wire, and then a tap was used to create the threads for the screws. Finally bilateral transpedicular screws were carefully placed bilaterally at L3-L4 under fluoroscopic visualization. An appropriate purchase was achieved with all screws. The position of each screw was assessed anatomically with an AP, lateral , oblique Xrays. An intraoperative scan view of the spine was then performed using the iso-centric c-arm. Each screw was then assessed electrophysiologically stimulating each screw with a nerve stimulator. HARVESTING OF ILIAC CREST BONE A fascial incision was then made over the patient's right posterior iliac crest. The fascia was carefully opened with a Bovie and the posterior iliac crest was exposed. A small cortical window was created with an osteotome. Cancellous bone was then harvested, to be used during the interbody arthrodesis and the posterolateral fusion. Once an appropriate amount of bone was obtained , the incision was irrigated with antibiotic solution and hemostasis secured by packing the iliac crest with Surgicel. The cortical window was then repositioned and secured using 0 Vicryl sutures. The incision was irrigated and the fascia was closed with interrupted 0 Vicryl sutures. The subcutaneous tissue was approximated with 3-0 Vicryl sutures. SURGICAL DECOMPRESSION There was significant mass effect with compression of the neural structures. In order to relieve neural compression, it was necessary to perform a decompressive laminectomy, with decompression of the spinal canal and bilateral lateral recesses. Note that the scope of such decompression was significantly more extensive than the minimal exposure necessary to perform an interbody fusion, as there was extreme facet arthropathy with near complete collapse of the disk spaces and severe stenosis cause by the hyperthrophic joint facets. At this point of the procedure the operative microscope was draped in the usual sterile fashion and brought to the field. The rest of the surgical procedure was performed using microdissection technique with the exception of the closure. Under the operating microscope, a decompressive laminectomy was carried out at L3-L4as follow: The laminae, base of the spinous processes and facets were carefully drilled exposing the ligamentum flavum. The facets were abnormal with severe spondylolisthesis and gross mechanical instability. A large disk protusion was compressing the neural structures and exiting nerve roots. A near complete facetectomy was necessary resulting in further mechanical instability. The ligamentum flavum appeared hypertrophic, resulting on mass effect on the dorsal surface of the neural structures. The superior free border of the ligamentum flavum was elevated with a ligament dissector and the ligamentum flavum was removed with a 3 and 4 mm Kerrison forceps. The ligament was very adherent to the dural sac and during the dissection, ans extreme care was taken during the dissection. The exiting nerve roots were identified, and a wide foraminotomy was performed with a Kerrison in their trajectory towards the neural foramen. Epidural veins located laterally to the dural sac were coagulated with the bipolar cautery, and then incised using microscissors. Gentle medial retraction of the dural sac allowed me to expose the disc space for the discectomy. Upon completion of the discectomy, an excellent decompression of the neural structures was achieved. The tissues were very scar down from the prior surgery, with a severely scar and thinned dural sac. It was necessary to dissect the dura free of scar tissue. A small durotomy was unavoidable, with was repaired in a water thigh fashion using 6-0 Prolene, and the closure was sealed with Duraseal. Increased motion was noted thorough the procedure, which was consistent with mechanical instability. INTERBODY ARTHRODHESIS In order to correct the narrowing of the disk space and maintain distraction of the space, and to achieve a solid interbody fusion, it was necessary the insertion of an interbody device into the disk space. Otherwise, the disk space would collapse, compromising the result of the surgical procedure. At this point of the procedure, the annulus fibrosus of the disk was carefully coagulated with a bipolar cautery and incised using an 11 bladed knife. Then, a microdiscectomy was carried out in a standard fashion using a combination of straight and up-biting pituitary forceps. A reverse angle curette was applied underneath the posterior longitudinal ligament, and used to push the disk fragments into the disk space, so they can be safely removed with a pituitary forceps. Once the discectomy was completed, it was necessary to decorticate the endplates, in order to eliminate the cartilaginous endplate and to expose healthy bone appropriate to perform the interbody fusion. The endplates at L4- L5 were then thoroughly decorticated using increasing size bone maya and ring curets, eliminating the cartilaginous fragments from both, the superior and inferior endplates. A disk space distractor was applied to the pedicle screws and gentle distraction was applied. This maneuver was assisted by the use of a disk distractor. Increased motility was noted at the disk, which was consistent with instability due to facet arthropathy. Once a thorough preparation of the disk space was achieved, the disk space was irrigated with antibiotic solution, and the interbody fusion was performed by carefully impacting PPEK cages filled with autologous bone graft. The use of several shoe impactors with different angulation, allowed me for an excellent, proper position of the interbody cage. A solid position of the cage with good purchase was achieved. The position of the cages were assessed anatomically with a probe and radiologically with the C-arm. POSTEROLATERAL FUSION The posterolateral fusion is a critical component to the procedure, to prevent future fatigue and failure of the instrumental fixation. Initially, the transverse processes of the vertebral bodies, lateral surface of the facets and the lateral gutters of the spine were carefully cleaned, eliminating all soft tissue and muscle attachments. The area was then irrigated with a large amount of antibiotic solution. Subsequently, the transverse processes, lateral surface of the facets, and lateral gutters of the spine were thoroughly decorticated using the TPS drill with a 5mm cutting akrissa, exposing cancellous bone, in preparation for the posterolateral fusion. The incision was again irrigated with antibiotic solution. Then, the posterolateral fusion was then performed by carefully packing the lateral gutters of the spine at L3-L4 with autologous bone combined with demineralized bone matrix. I packed as much bone as possible. COMPLETION OF THE INSTRUMENTATION AND CLOSURE The rods were brought to the field, applied to all the screws, and the screw caps were sequentially applied. Compression was performed between the pedicle screws, and final tightening of the screws was completed using a torque wrench. The incision was again thoroughly irrigated with several liters of antibiotic solution, and hemostasis secured with the bipolar cautery. A Valsalva Maneuver performed by the anesthesiologist failed to show any evidence of cerebrospinal fluid leak or bleeding. A 7 mm Otoniel-Levin drain was left in the epidural space and externalized through a separate stab incision. The incision was then closed in planes. 0 Vicryl was used in an interrupted fashion to close the thoracolumbar fascia and the superficial fascia. The subcutaneous tissue was then approximated using 3-0 Vicryl in an interrupted fashion. Special care was taken to avoid space. The skin was then closed with 4-0 [place]ryland 2-0 Ethylon in a running, subcuticular fashion. Dermabond Prineo was applied to the skin. Each plane of closure was irrigated with antibiotic solution. At the end of the procedure the sponge, needle and instrument counts were all correct. Estimated blood loss was 200 cc. No blood transfusion was given. The entire procedure was performed using continuous electrophysiological monitoring of the somatosensorial evoked potentials and EMG. The patient received prophylactic antibiotics. The patient was then extubated and transferred to the recovery room in stable condition. Laron Jordan MD November 22, 2017 16:54
[2017-11-22] MEDS: INSULIN ASPART SUPPLEMENTAL SCALE SQ SCH ×2 (17:00→20:52)
[2017-11-22 20:00] VITALS: BP 112/67; PULSE 84; RESP 16; TEMP 97.4; O2SAT 96
[2017-11-22 20:35] VITALS: O2SAT 94
[2017-11-22] MEDS: ATORVASTATIN 80 MG TAB PO SCH (20:50)
[2017-11-22] MEDS: ceFAZolin 2 GM PREMIX 50 ML IV SCH (20:50)
[2017-11-22] MEDS: DOCUSATE SODIUM 100 MG CAP PO SCH (20:51)
[2017-11-22] MEDS: PCA - TOTAL MG DILAUDID DELIVERED PER SHIFT SCH (21:45)
[2017-11-22] MEDS: CHLORHEXIDINE GLUCONATE 4% SOLN 120 ML BTL TOP SCH (21:50)
[2017-11-23] VITALS (7 sets, daily range): BP systolic 73–116; BP diastolic 38–65; PULSE 66–74; RESP 18–20; TEMP 97.3–98.5; O2SAT 95–98
[2017-11-23] MEDS: ACETAMINOPHEN/HYDROcodone 325 MG/10 MG TAB PO PRN ×4 (01:18→21:09)
[2017-11-23] MEDS: HYDROmorphone HCL PCA 6 MG/30 ML IV SCH ×4 (01:19→18:20)
[2017-11-23] MEDS: SODIUM CHLOR 0.9% 1000 ML INJ 1,000 ML IV SCH ×3 (01:43→21:15)
[2017-11-23] MEDS: LEVOTHYROXINE SODIUM 150 MCG TAB PO SCH (05:41)
[2017-11-23] MEDS: ceFAZolin 2 GM PREMIX 50 ML IV SCH ×2 (05:41→12:08)
[2017-11-23] MEDS: PCA - TOTAL MG DILAUDID DELIVERED PER SHIFT SCH ×3 (05:43→22:00)
[2017-11-23] MEDS: INSULIN ASPART SUPPLEMENTAL SCALE SQ SCH ×4 (08:00→21:00)
[2017-11-23 08:13] LABS: AUTOMATED NEUTROPHIL # 10.1 TH/MM3 (1.8-7.7); BASOPHIL % 0.2 % (0.0-2.0); HEMATOCRIT 34.8 % (35.0-46.0); HEMOGLOBIN 11.7 GM/DL (11.6-15.3); LYMPH % 15.5 % (9.0-44.0); LYMPHOCYTE # 2.1 TH/MM3 (1.0-4.8); MEAN CORPUSCULAR HEMOGLOBIN 32.1 PG (27.0-34.0); MEAN CORPUSCULAR HGB CONC 33.7 % (32.0-36.0); MEAN PLATELET VOLUME 7.7 FL (7.0-11.0); MONO % 8.1 % (0.0-8.0); MONOCYTE # 1.1 TH/MM3 (0-0.9); NEUT % 76.2 % (16.0-70.0); PLATELET COUNT 306 TH/MM3 (150-450); RED BLOOD COUNT 3.66 MIL/MM3 (4.00-5.30); RED CELL DISTRIBUTION WIDTH 12.7 % (11.6-17.2); WHITE BLOOD COUNT 13.2 TH/MM3 (4.0-11.0)
[2017-11-23 08:35] LABS: BICARBONATE 23.8 MEQ/L (21.0-32.0); CALCIUM 8.2 MG/DL (8.5-10.1); CREATININE 0.99 MG/DL (0.50-1.00)
[2017-11-23] MEDS ORDERED: NON-FORMULARY DRUG (Lisinopril-Hctz 1 TAB) PO SCH (09:00)
[2017-11-23] MEDS: HYDROCHLOROTHIAZIDE 25 MG TAB PO SCH (09:25)
[2017-11-23] MEDS: DOCUSATE SODIUM 100 MG CAP PO SCH ×2 (09:26→21:10)
[2017-11-23] MEDS: LISINOPRIL 10 MG TAB PO SCH (09:26)
[2017-11-23] MEDS: PANTOPRAZOLE SOD 40 MG DELAYED RELEASE TAB PO SCH (09:26)
[2017-11-23] MEDS: CHOLECALCIFEROL (VIT D3) 1000 UNIT TAB PO SCH (09:26)
--- NOTE | 2017-11-23 12:46 | HHI.FPPN ---
Subjective Remarks Mrs. Russell was afebrile with stable vital signs overnight. Patient reports bilateral lower back pain and left hip/buttock pain which is controlled with current medications but still painful. No lower extremity numbness/tingling. Patient had some urinary incontinence previously; she is not sure if it has improved. Patient eating well. Normal respirations. No chest pain. Patient does not report having recent bowel movement. (Kelby Martin MD R3) Objective Vitals Vital Signs Date Time Temp Pulse Resp B/P (MAP) Pulse Ox O2 Delivery O2 Flow Rate FiO2 11/23/17 12:00 97.6 66 18 94/47 (63) 97 11/23/17 10:25 18 11/23/17 08:47 97.4 68 18 103/49 (67) 96 11/23/17 08:27 18 11/23/17 07:57 18 11/23/17 05:43 18 11/23/17 04:00 97.5 68 18 90/53 (65) 95 11/23/17 01:19 18 11/23/17 00:00 97.3 68 20 99/65 (76) 96 11/22/17 21:45 18 11/22/17 21:45 19 11/22/17 20:35 94 Nasal Cannula 3.00 11/22/17 20:00 97.4 84 16 112/67 (82) 96 11/22/17 16:00 97.8 81 16 84/52 (63) 92 11/22/17 15:41 98.3 86 16 96/54 (68) 94 Nasal Cannula 2 11/22/17 15:30 86 16 96/54 (68) 94 Nasal Cannula 2 11/22/17 15:20 16 11/22/17 15:15 86 16 98/53 (68) 94 Nasal Cannula 2 11/22/17 14:52 98.3 89 16 101/63 (76) 94 Nasal Cannula 2 I/O 11/22/17 11/22/17 11/22/17 11/23/17 11/23/17 11/23/17 07:00 15:00 23:00 07:00 15:00 23:00 Intake Total 2250 ml 591 ml Output Total 600 ml 450 ml Balance 1650 ml 141 ml Intake Oral 591 ml IV Total 2250 ml Output Urine Total 400 ml 450 ml Estimated Blood Loss 200 ml # Bowel Movements 0 (Kelby Martin MD R3) Result Diagram: 11/23/17 0529 11/23/17 0620 Imaging Last Impressions Lumbar Spine X-Ray 11/22/17 0000 Signed Impressions: CONCLUSION: Fluoroscopic images during placement of posterior screws/rods at L3-4 with inte rvertebral disc device. Objective Remarks GENERAL: No acute distress SKIN: No visible lesions. Surgical incision not inspected HEAD: Atraumatic. Normocephalic. EYES: Extraocular motions grossly intact. CARDIOVASCULAR: Regular rate and rhythm without murmurs to auscultation. No significant LE edema RESPIRATORY: Clear to auscultation. Breath sounds equal bilaterally. No wheezes or congestion to auscultation. GASTROINTESTINAL: Abdomen soft, non-tender, nondistended MUSCULOSKELETAL: Extremities without edema. No joint tenderness, effusion, or edema noted. No calf tenderness. NEUROLOGICAL: Awake and alert. Cranial nerves grossly intact. Motor and sensory grossly within normal limits. Normal speech. (Kelby Martin MD R3) A/P Assessment and Plan Patient is a 62-year-old female with a history of spinal stenosis, chronic hepatitis C, diabetes, hypothyroidism, hypertension who postop L3-L4 hemilaminectomy (Kelby Martin MD R3) Attending Attestation Patient seen and examined with Dr Martin EMR reviewed Case discussed in detail Agree with contents of note and assessment See Orders (Laurent Taylor MD) Problem List: (1) Status post lumbar surgery ICD Codes: Z98.890 - Other specified postprocedural states Status: Acute Plan: Impression: Patient is POD 1 from L3-L4 laminectomy, interbody arthrodhesis using PEEK cage and autologous bone graft, L4-5 instrumental fixation using transpedicular screws and rods, L3-4 posterolateral fusion using autologous bone graft with Dr. Jordan Per EMR, patient with history of intractable mechanical back pain and radiculopathy -Management per Neurosurgery -strict bed rest -OOB tomorrow with TLSO brace -Start PT tomorrow -DC ramirez when ambulatory -Continue Neuro checks -IS hourly -SCD's and JAMA's for DVT PPX -Replace dressing to Optifoam -Pain control with NS with TRAIN OPERATIONS MANAGER and [employer] (2) Diabetes ICD Codes: E11.9 - Type 2 diabetes mellitus without complications Plan: -Low dose sliding scale insulin -Blood glucose monitoring -Hypoglycemia protocol ordered (3) Hypothyroidism ICD Codes: E03.9 - Hypothyroidism, unspecified Status: Acute Plan: -Continue home medication of levothyroxine 150 mcg p.o. daily (4) Hypertension ICD Codes: I10 - Essential (primary) hypertension Status: Chronic Plan: -Continue home medication of lisinopril-HCTZ 10-12.5 mg p.o. daily (5) Hypercholesterolemia ICD Codes: E78.00 - Pure hypercholesterolemia, unspecified Plan: -Continue home medication of atorvastatin 80 mg p.o. nightly (6) fen/ppx Status: Chronic Plan: Fluids: Maintenance fluids with normal saline IV Electrolytes: Monitor and replete Nutrition: Advance diet as tolerated, heart healthy diet ordered GI prophylaxis: Bowel regimen ordered (7) Contraindication to anticoagulation therapy ICD Codes: Z53.09 - Procedure and treatment not carried out because of other contraindication Plan: Patient is postop day 1 -SCDs bilaterally per NS (Kelby Martin MD R3) Kelby Martin MD R3 November 23, 2017 12:46 Laurent Taylor MD November 23, 2017 15:00
--- NOTE | 2017-11-23 12:55 | HHI.NSPN ---
(Jenn Maharaj) Note Status Status: Progress Note (Jenn aMharaj) Interval History Interval History Ms Russell is a 62 year-old female who presented with intractable mechanical back pain and geovanni evidence of lower extremity L4 radiculopathy. 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 She failed maximum nonsurgical management including multiple modalities of conservative treatment as well as pain management interventions by an interventional pain specialist. The patient has undergone a previous surgical procedure. A redo surgical decompression and arthrodesis were indicated as a last resort. L3-L4 laminectomy, interbody arthrodhesis using PEEK cage and autologous bone graft, L4-5 instrumental fixation using transpedicular screws and rods, L3-4 posterolateral fusion using autologous bone graft. Microsurgical dissection for lumbar degenerative disk disease with intractable mechanical back pain and radiculopathy on 11/22/17 5: on bed rest, c/o of left lateral hip pain. (Jenn Maharaj) Labs, Micro, & Vital Signs Results Date Time Temp Pulse Resp B/P (MAP) Pulse Ox O2 Delivery O2 Flow Rate FiO2 11/23/17 12:00 97.6 66 18 94/47 (63) 97 11/23/17 10:25 18 11/23/17 08:47 97.4 68 18 103/49 (67) 96 11/23/17 08:27 18 11/23/17 07:57 18 11/23/17 05:43 18 11/23/17 04:00 97.5 68 18 90/53 (65) 95 11/23/17 01:19 18 11/23/17 00:00 97.3 68 20 99/65 (76) 96 11/22/17 21:45 18 11/22/17 21:45 19 11/22/17 20:35 94 Nasal Cannula 3.00 11/22/17 20:00 97.4 84 16 112/67 (82) 96 11/22/17 16:00 97.8 81 16 84/52 (63) 92 11/22/17 15:41 98.3 86 16 96/54 (68) 94 Nasal Cannula 2 11/22/17 15:30 86 16 96/54 (68) 94 Nasal Cannula 2 11/22/17 15:20 16 11/22/17 15:15 86 16 98/53 (68) 94 Nasal Cannula 2 11/22/17 14:52 98.3 89 16 101/63 (76) 94 Nasal Cannula 2 Constitutional Vital Signs Date Time Temp Pulse Resp B/P (MAP) Pulse Ox O2 Delivery O2 Flow Rate FiO2 11/23/17 12:00 97.6 66 18 94/47 (63) 97 11/23/17 10:25 18 11/23/17 08:47 97.4 68 18 103/49 (67) 96 11/23/17 08:27 18 11/23/17 07:57 18 11/23/17 05:43 18 11/23/17 04:00 97.5 68 18 90/53 (65) 95 11/23/17 01:19 18 11/23/17 00:00 97.3 68 20 99/65 (76) 96 11/22/17 21:45 18 11/22/17 21:45 19 11/22/17 20:35 94 Nasal Cannula 3.00 11/22/17 20:00 97.4 84 16 112/67 (82) 96 11/22/17 16:00 97.8 81 16 84/52 (63) 92 11/22/17 15:41 98.3 86 16 96/54 (68) 94 Nasal Cannula 2 11/22/17 15:30 86 16 96/54 (68) 94 Nasal Cannula 2 11/22/17 15:20 16 11/22/17 15:15 86 16 98/53 (68) 94 Nasal Cannula 2 11/22/17 14:52 98.3 89 16 101/63 (76) 94 Nasal Cannula 2 (Jenn Maharaj) Review of Systems Constitutional: DENIES: Fever, Chills Cardiovascular: DENIES: Chest pain Musculoskeletal: COMPLAINS OF: Muscle aches, Stiffness, Back pain Neurologic: COMPLAINS OF: Paresthesias, DENIES: Headache (Jenn Maharaj) Physical Exam Ms. Russell is alert, awake and oriented to time, place and person. Speech is fluent. Cranial nerve examination: pupils to be equal, round and reactive to light. Facial motor are normal and symmetrical. Neck is soft and supple Muscle strength: moving all major muscle groups of upper and lower extremities Respiratory: clear, nonlabored Wound reported with Primapore dressing (Jenn Maharaj) Medications Current Medications Current Medications Medications (Trade) Dose Ordered Sig/Jose Route PRN Reason Start Time Stop Time Status Last Admin Dose Admin Vancomycin/Sodium Chloride 200 ml @ 200 mls/hr ROOM MANAGER IV 11/22/17 07:00 11/25/17 06:59 11/22/17 08:08 Metoprolol Tartrate (Lopressor) 25 mg ROOM MANAGER PRN PO SEE LABEL COMMENTS 11/22/17 07:00 11/25/17 06:59 Povidone Iodine (Betadine 5% Antisepsis Kit) 1 applic ROOM MANAGER PRN EACH NARE SEE LABEL COMMENTS 11/22/17 07:00 11/25/17 06:59 11/22/17 08:08 Chlorhexidine Gluconate (Chlorhexidine 2% Cloth) 3 pack ROOM MANAGER PRN TOPICAL SEE LABEL COMMENTS 11/22/17 07:00 11/25/17 06:59 11/22/17 07:30 Sodium Chloride 1,000 ml @ 100 mls/hr Q10H IV 11/22/17 15:00 11/23/17 11:00 Cefazolin Sodium/ Dextrose 50 ml @ 100 mls/hr Q8H IV 11/22/17 21:00 11/23/17 13:29 11/23/17 12:08 Bisacodyl (Dulcolax Supp) 10 mg DAILY PRN RECTAL SEVERE CONSTIPATION 11/22/17 14:30 Docusate Sodium (Colace) 100 mg BID PO 11/22/17 21:00 11/23/17 09:26 Magnesium Hydroxide (Milk Of Magnesia Liq) 30 ml DAILY PRN PO MILD CONSTIPATION 11/22/17 14:30 Pantoprazole Sodium (Protonix) 40 mg DAILY PO 11/23/17 09:00 11/23/17 09:26 Ondansetron HCl (Zofran Odt) 4 mg Q6H PRN PO NAUSEA OR VOMITING 11/22/17 14:30 Morphine Sulfate (Morphine Inj) 2 mg Q2H PRN IV PUSH breakthrough pain 11/22/17 14:30 Cyclobenzaprine HCl (Flexeril) 10 mg Q8H PRN PO MUSCLE SPASM 11/22/17 14:30 Clonidine (Catapres) 0.1 mg Q6H PRN PO/NG SYS BP GREATER THAN 170 MMHG 11/22/17 14:30 Acetaminophen (Tylenol) 650 mg Q4H PRN PO TEMPERATURE > 101.5 F 11/22/17 14:30 Menthol ([place]) 1 lozenge UNSCH PRN BUCCAL SORE THROAT 11/22/17 14:30 Albuterol Sulfate (Albuterol Neb) 2.5 mg Q4HR NEB PRN INH WHEEZING 11/22/17 14:30 Chlorhexidine Gluconate (Hibiclens 4% Top Soln) 1 applic HS TOP 11/22/17 21:00 11/24/17 21:01 11/22/17 21:50 Naloxone HCl (Narcan Inj) 0.4 mg UNSCH PRN IV PUSH RESPIRATORY RATE LESS THAN 10 11/22/17 14:30 Diphenhydramine HCl (Benadryl Inj) 25 mg Q6H PRN IV PUSH ITCHING 11/22/17 14:30 Hydromorphone HCl (Dilaudid BILLET GRINDER Inj) 6 mg UNSCH IV 11/22/17 14:30 11/23/17 07:57 BILLET GRINDER Dosage Infused (Pha) 1 Q8HR .XX 11/22/17 22:00 11/23/17 05:43 Acetaminophen/ Hydrocodone Bitart ([place] 10-325 Mg) 1 tab Q4H PRN PO PAIN SCALE 1 TO 5 11/22/17 14:30 11/23/17 01:18 Acetaminophen/ Hydrocodone Bitart ([place] 10-325 Mg) 2 tab Q4H PRN PO PAIN SCALE 6 TO 10 11/22/17 14:30 11/23/17 09:25 Miscellaneous Information ([facility] [place] [facility] Information) ALL NURSING DEPARTME... UNSCH PRN .XX SEE LABEL COMMENTS 11/22/17 14:57 11/23/17 14:56 Atorvastatin Calcium (Lipitor) 80 mg HS PO 11/22/17 21:00 11/22/17 20:50 Cholecalciferol (Vitamin D3) 1,000 units DAILY PO 11/23/17 09:00 11/23/17 09:26 Levothyroxine Sodium (Synthroid) 150 mcg DAILY@0600 PO 11/23/17 06:00 11/23/17 05:41 Dextrose (D50w (Vial) Inj) 50 ml UNSCH PRN IV PUSH HYPOGLYCEMIA-SEE COMMENTS 11/22/17 16:15 Glucagon (Glucagon Inj) 1 mg UNSCH PRN OTHER HYPOGLYCEMIA-SEE COMMENTS 11/22/17 16:15 Insulin Aspart (NovoLOG SUPPLEMENTAL SCALE) 1 ACHS SLIDING SCALE SQ 11/22/17 17:00 11/23/17 12:08 Lisinopril (Prinivil) 10 mg DAILY PO 11/23/17 09:00 11/23/17 09:26 Hydrochlorothiazide (Hydrodiuril) 12.5 mg DAILY PO 11/23/17 09:00 11/23/17 09:25 (Jenn Maharaj) Medical Decision Making MDM Remarks 62 y/o female s/p L3-L4 laminectomy, interbody arthrodesis using PEEK cage and autologous bone graft, L4-5 instrumental fixation using transpedicular screws and rods, L3-4 posterolateral fusion using autologous bone graft, microsurgical dissection for lumbar degenerative disk disease with intractable mechanical back pain and radiculopathy on 11/22/17 dural tear repair (Jenn Maharaj) Plan Plan Remarks cont BILLET GRINDER for pain control, oral pain meds also available prn keep on strict bed rest today, will get patient OOB tomorrow with TLSO brace, start PT tomorrow morning dc ramirez once ambulatory cont neuro checks IS every hour SCDs and TEDs for dvt prophylaxis replace dressing to Optifoam (Jenn Maharaj) Attending Statement The exam, history, and the medical decision-making described in the above note were completed with the assistance of the mid-level provider. I reviewed and agree with the findings presented. I attest that I had a [id number] encounter with the patient on the same day, and personally performed and documented my assessment and findings in the medical record. (Laron Jordan MD) Jenn Maharaj November 23, 2017 12:55 Laron Jordan MD Nov 27, 2017 11:36
[2017-11-23] MEDS: CHLORHEXIDINE GLUCONATE 4% SOLN 120 ML BTL TOP SCH (21:00)
[2017-11-23] MEDS: ATORVASTATIN 80 MG TAB PO SCH (21:10)
[2017-11-24] MEDS: HYDROmorphone HCL PCA 6 MG/30 ML IV SCH ×5 (00:07→21:03)
[2017-11-24] MEDS: ACETAMINOPHEN/HYDROcodone 325 MG/10 MG TAB PO PRN ×4 (01:43→21:28)
[2017-11-24 03:33] VITALS: BP 126/65; PULSE 70; RESP 18; TEMP 98.7; O2SAT 96
[2017-11-24 06:05] LABS: BASOPHIL % 0.4 % (0.0-2.0); EOSINOPHIL # 0.1 TH/MM3 (0-0.4); EOSINOPHIL % 0.7 % (0.0-4.0); HEMATOCRIT 31.7 % (35.0-46.0); LYMPH % 23.5 % (9.0-44.0); LYMPHOCYTE # 2.5 TH/MM3 (1.0-4.8); MEAN CELL VOLUME 94.6 FL (80.0-100.0); MEAN CORPUSCULAR HEMOGLOBIN 32.8 PG (27.0-34.0); MEAN CORPUSCULAR HGB CONC 34.7 % (32.0-36.0); MEAN PLATELET VOLUME 7.9 FL (7.0-11.0); MONO % 10.4 % (0.0-8.0); MONOCYTE # 1.1 TH/MM3 (0-0.9); PLATELET COUNT 245 TH/MM3 (150-450); RED BLOOD COUNT 3.35 MIL/MM3 (4.00-5.30); RED CELL DISTRIBUTION WIDTH 12.5 % (11.6-17.2); WHITE BLOOD COUNT 10.8 TH/MM3 (4.0-11.0)
[2017-11-24] MEDS: LEVOTHYROXINE SODIUM 150 MCG TAB PO SCH (06:07)
[2017-11-24 06:37] LABS: BICARBONATE 22.7 MEQ/L (21.0-32.0); CALCIUM 8.2 MG/DL (8.5-10.1); CREATININE 0.72 MG/DL (0.50-1.00)
[2017-11-24] MEDS: SODIUM CHLOR 0.9% 1000 ML INJ 1,000 ML IV SCH ×2 (07:00→17:00)
[2017-11-24 08:00] VITALS: BP 105/52; PULSE 71; RESP 14; TEMP 98.5; O2SAT 94
[2017-11-24] MEDS: INSULIN ASPART SUPPLEMENTAL SCALE SQ SCH ×4 (08:00→22:36)
[2017-11-24] MEDS: LISINOPRIL 10 MG TAB PO SCH (09:00)
[2017-11-24] MEDS: HYDROCHLOROTHIAZIDE 25 MG TAB PO SCH (09:00)
--- NOTE | 2017-11-24 09:24 | HHI.FPPN ---
Subjective Remarks Mrs. Russell was afebrile with intermittent hypotension overnight (low BP of 73 /38; currently normotensive). Patient did not report hypotensive symptoms and states this is due to pain medication. Patient has persistent left buttock pain and lower back pain. She is able to feel sensation in lower extremities and move her legs. Ramirez removed today. She has not yet had a bowel movement. Patient has some chest pain which she states was from laying on her chest during surgery; she is not concerned. No shortness of breath or diaphoresis. (Kelby Martin MD R3) Objective Vitals Vital Signs Date Time Temp Pulse Resp B/P (MAP) Pulse Ox O2 Delivery O2 Flow Rate FiO2 11/24/17 07:33 16 11/24/17 04:18 18 11/24/17 03:33 98.7 70 18 126/65 (85) 96 11/24/17 00:07 16 11/23/17 23:55 98.5 69 18 73/38 (50) 95 11/23/17 19:50 98.4 74 18 98/55 (69) 95 11/23/17 18:20 18 11/23/17 16:00 97.6 69 18 116/54 (74) 98 11/23/17 14:00 18 11/23/17 13:00 17 11/23/17 12:00 97.6 66 18 94/47 (63) 97 11/23/17 10:25 18 I/O 11/23/17 11/23/17 11/23/17 11/24/17 11/24/17 11/24/17 07:00 15:00 23:00 07:00 15:00 23:00 Intake Total 591 ml 2450 ml 360 ml Output Total 450 ml 600 ml Balance 141 ml 1850 ml 360 ml Intake Oral 591 ml 1500 ml 360 ml IV Total 950 ml Output Urine Total 450 ml 600 ml # Voids 1 # Bowel Movements 0 0 (Kelby Martin MD R3) Result Diagram: 11/24/17 0439 11/24/17 0439 Imaging Last Impressions Lumbar Spine X-Ray 11/22/17 0000 Signed Impressions: CONCLUSION: Fluoroscopic images during placement of posterior screws/rods at L3-4 with inte rvertebral disc device. Objective Remarks GENERAL: No acute distress SKIN: No visible lesions. Surgical incision not inspected EYES: Extraocular motions grossly intact. CARDIOVASCULAR: Regular rate and rhythm without murmurs to auscultation. No significant LE edema Chest: Pain to palpation; mild RESPIRATORY: Clear to auscultation. Breath sounds equal bilaterally. No congestion to auscultation. GASTROINTESTINAL: Abdomen soft, non-tender, nondistended MUSCULOSKELETAL: Extremities without edema. No joint tenderness, effusion, or edema noted. No calf tenderness. NEUROLOGICAL: Awake and alert. Cranial nerves grossly intact. Motor and sensory grossly within normal limits. Normal speech. (Kelby Martin MD R3) A/P Assessment and Plan Patient is a 62-year-old female with a history of spinal stenosis, chronic hepatitis C, diabetes, hypothyroidism, hypertension who postop L3-L4 hemilaminectomy Discharge Planning Per NS (Kelby Martin MD R3) Attending Attestation Patient examined independently and case discussed with resident physician I have read the above note and agree with the assessment/plan as discussed with me I was involved in all medical decision making for this patient Cy Xiao MD (Cy Xiao MD) Problem List: (1) Status post lumbar surgery ICD Codes: Z98.890 - Other specified postprocedural states Status: Acute Plan: Impression: Patient is POD 2 from L3-L4 laminectomy, interbody arthrodhesis using PEEK cage and autologous bone graft, L4-5 instrumental fixation using transpedicular screws and rods, L3-4 posterolateral fusion using autologous bone graft with Dr. Jordan Per EMR, patient with history of intractable mechanical back pain and radiculopathy -Management per Neurosurgery -strict bed rest -OOB today with TLSO brace -Start PT today -DC ramirez when ambulatory -Continue Neuro checks -IS hourly -SCD's and JAMA's for DVT PPX -Replace dressing to Optifoam -Pain control with NS with CITY AUDITOR and Holder (2) Diabetes ICD Codes: E11.9 - Type 2 diabetes mellitus without complications Plan: -Low dose sliding scale insulin -Blood glucose monitoring -Hypoglycemia protocol ordered (3) Hypothyroidism ICD Codes: E03.9 - Hypothyroidism, unspecified Status: Acute Plan: -Continue home medication of levothyroxine 150 mcg p.o. daily (4) Hypertension ICD Codes: I10 - Essential (primary) hypertension Status: Chronic Plan: -Continue home medication of lisinopril-HCTZ 10-12.5 mg p.o. daily (5) Hypercholesterolemia ICD Codes: E78.00 - Pure hypercholesterolemia, unspecified Status: Chronic Plan: -Continue home medication of atorvastatin 80 mg p.o. nightly (6) fen/ppx Status: Chronic Plan: Fluids: Maintenance fluids with normal saline IV Electrolytes: Monitor and replete Nutrition: Advance diet as tolerated, heart healthy diet ordered GI prophylaxis: Bowel regimen ordered (7) Contraindication to anticoagulation therapy ICD Codes: Z53.09 - Procedure and treatment not carried out because of other contraindication Plan: Patient is postop day 2 -SCDs bilaterally per NS (Kelby Martin MD R3) Problem Qualifiers (1) Hypertension: Qualified Codes: I10 - Essential (primary) hypertension Kelby Martin MD R3 November 24, 2017 09:24 Cy Xiao MD November 24, 2017 13:50
[2017-11-24] MEDS: DOCUSATE SODIUM 100 MG CAP PO SCH ×2 (10:35→20:58)
[2017-11-24] MEDS: PANTOPRAZOLE SOD 40 MG DELAYED RELEASE TAB PO SCH (10:35)
[2017-11-24] MEDS: CHOLECALCIFEROL (VIT D3) 1000 UNIT TAB PO SCH (10:36)
[2017-11-24 12:00] VITALS: BP 108/55; PULSE 73; RESP 12; TEMP 98.2; O2SAT 96
[2017-11-24] MEDS ORDERED: MAGNESIUM CITRATE SOLN 300 ML BTL PO ONE (12:15)
[2017-11-24] MEDS: PCA - TOTAL MG DILAUDID DELIVERED PER SHIFT SCH (14:00)
[2017-11-24 16:00] VITALS: BP 132/62; PULSE 77; RESP 15; TEMP 98.1; O2SAT 97
--- NOTE | 2017-11-24 16:17 | HHI.NSPN ---
(Jenn Maharaj) Note Status Status: Progress Note (Jenn Maharaj) Interval History Interval History Ms uRssell is a 62 year-old female who presented with intractable mechanical back pain and geovanni evidence of lower extremity L4 radiculopathy. 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 She failed maximum nonsurgical management including multiple modalities of conservative treatment as well as pain management interventions by an interventional pain specialist. The patient has undergone a previous surgical procedure. A redo surgical decompression and arthrodesis were indicated as a last resort. L3-L4 laminectomy, interbody arthrodhesis using PEEK cage and autologous bone graft, L4-5 instrumental fixation using transpedicular screws and rods, L3-4 posterolateral fusion using autologous bone graft. Microsurgical dissection for lumbar degenerative disk disease with intractable mechanical back pain and radiculopathy on 11/22/1711/23: on bed rest, c/o of left lateral hip pain. 11/24: reports prior radiculopathy has improved, stable pain in left lateral hip and buttocks region. also has not had BM, she is passing gas. (Jenn Maharaj) Labs, Micro, & Vital Signs Results Date Time Temp Pulse Resp B/P (MAP) Pulse Ox O2 Delivery O2 Flow Rate FiO2 11/24/17 15:02 16 11/24/17 14:00 16 11/24/17 12:00 98.2 73 12 108/55 (72) 96 11/24/17 08:00 98.5 71 14 105/52 (69) 94 11/24/17 07:33 16 11/24/17 04:18 18 11/24/17 03:33 98.7 70 18 126/65 (85) 96 11/24/17 00:07 16 11/23/17 23:55 98.5 69 18 73/38 (50) 95 11/23/17 22:00 16 11/23/17 19:50 98.4 74 18 98/55 (69) 95 11/23/17 18:20 18 11/25/17 07:00 Intake Total 4.7 ml Balance 4.7 ml Constitutional Vital Signs Date Time Temp Pulse Resp B/P (MAP) Pulse Ox O2 Delivery O2 Flow Rate FiO2 11/24/17 15:02 16 11/24/17 14:00 16 11/24/17 12:00 98.2 73 12 108/55 (72) 96 11/24/17 08:00 98.5 71 14 105/52 (69) 94 11/24/17 07:33 16 11/24/17 04:18 18 11/24/17 03:33 98.7 70 18 126/65 (85) 96 11/24/17 00:07 16 11/23/17 23:55 98.5 69 18 73/38 (50) 95 11/23/17 22:00 16 11/23/17 19:50 98.4 74 18 98/55 (69) 95 11/23/17 18:20 18 11/25/17 07:00 Intake Total 4.7 ml Balance 4.7 ml (Jenn Maharaj) Review of Systems Constitutional: DENIES: Fever, Chills Cardiovascular: DENIES: Chest pain Musculoskeletal: COMPLAINS OF: Back pain Neurologic: COMPLAINS OF: Paresthesias, DENIES: Seizures (Jenn Maharaj) Physical Exam Ms. Russell is alert, awake and oriented to time, place and person. Speech is fluent. Resting comfortably in bed, NAD. Cranial nerve examination: pupils equal, round and reactive to light. Facial motor are normal and symmetrical. Neck is soft and supple Muscle strength: moving all major muscle groups of upper and lower extremities Respiratory: clear, nonlabored (Jenn Maharaj) Medications Current Medications Current Medications Medications (Trade) Dose Ordered Sig/Jose Route PRN Reason Start Time Stop Time Status Last Admin Dose Admin Vancomycin/Sodium Chloride 200 ml @ 200 mls/hr DIRECTOR MEDICAL ECONOMICS IV 11/22/17 07:00 11/25/17 06:59 11/22/17 08:08 Metoprolol Tartrate (Lopressor) 25 mg DIRECTOR [employer] ECONOM[employer] PRN PO SEE LABEL COMMENTS 11/22/17 07:00 11/25/17 06:59 Povidone Iodine (Betadine 5% Antisepsis Kit) 1 applic DIRECTOR MEDICAL ECONOMICS PRN EACH NARE SEE LABEL COMMENTS 11/22/17 07:00 11/25/17 06:59 11/22/17 08:08 Chlorhexidine Gluconate (Chlorhexidine 2% Cloth) 3 pack DIRECTOR [employer] ECONOM[employer] PRN TOPICAL SEE LABEL COMMENTS 11/22/17 07:00 11/25/17 06:59 11/22/17 07:30 Sodium Chloride 1,000 ml @ 100 mls/hr Q10H IV 11/22/17 15:00 11/23/17 21:15 Bisacodyl (Dulcolax Supp) 10 mg DAILY PRN RECTAL SEVERE CONSTIPATION 11/22/17 14:30 Docusate Sodium (Colace) 100 mg BID PO 11/22/17 21:00 11/24/17 10:35 Magnesium Hydroxide (Milk Of Magnesia Liq) 30 ml DAILY PRN PO MILD CONSTIPATION 11/22/17 14:30 11/24/17 10:36 Pantoprazole Sodium (Protonix) 40 mg DAILY PO 11/23/17 09:00 11/24/17 10:35 Ondansetron HCl (Zofran Odt) 4 mg Q6H PRN PO NAUSEA OR VOMITING 11/22/17 14:30 Morphine Sulfate (Morphine Inj) 2 mg Q2H PRN IV PUSH breakthrough pain 11/22/17 14:30 Cyclobenzaprine HCl (Flexeril) 10 mg Q8H PRN PO MUSCLE SPASM 11/22/17 14:30 11/24/17 04:16 Clonidine (Catapres) 0.1 mg Q6H PRN PO/NG SYS BP GREATER THAN 170 MMHG 11/22/17 14:30 Acetaminophen (Tylenol) 650 mg Q4H PRN PO TEMPERATURE > 101.5 F 11/22/17 14:30 Menthol ([place] Vance) 1 lozenge UNSCH PRN BUCCAL SORE THROAT 11/22/17 14:30 Albuterol Sulfate (Albuterol Neb) 2.5 mg Q4HR NEB PRN INH WHEEZING 11/22/17 14:30 Chlorhexidine Gluconate (Hibiclens 4% Top Soln) 1 applic HS TOP 11/22/17 21:00 11/24/17 21:01 11/23/17 21:00 Naloxone HCl (Narcan Inj) 0.4 mg UNSCH PRN IV PUSH RESPIRATORY RATE LESS THAN 10 11/22/17 14:30 Diphenhydramine HCl (Benadryl Inj) 25 mg Q6H PRN IV PUSH ITCHING 11/22/17 14:30 Hydromorphone HCl (Dilaudid STORE MANAGEMENT TRAINEE Inj) 6 mg UNSCH IV 11/22/17 14:30 11/24/17 15:02 STORE MANAGEMENT TRAINEE Dosage Infused (Pha) 1 Q8HR .XX 11/22/17 22:00 11/24/17 14:00 Acetaminophen/ Hydrocodone Bitart ([place] 10-325 Mg) 1 tab Q4H PRN PO PAIN SCALE 1 TO 5 11/22/17 14:30 11/24/17 07:28 Acetaminophen/ Hydrocodone Bitart ([place] 10-325 Mg) 2 tab Q4H PRN PO PAIN SCALE 6 TO 10 11/22/17 14:30 11/24/17 13:40 Atorvastatin Calcium (Lipitor) 80 mg HS PO 11/22/17 21:00 11/23/17 21:10 Cholecalciferol (Vitamin D3) 1,000 units DAILY PO 11/23/17 09:00 11/24/17 10:36 Levothyroxine Sodium (Synthroid) 150 mcg DAILY@0600 PO 11/23/17 06:00 11/24/17 06:07 Dextrose (D50w (Vial) Inj) 50 ml UNSCH PRN IV PUSH HYPOGLYCEMIA-SEE COMMENTS 11/22/17 16:15 Glucagon (Glucagon Inj) 1 mg UNSCH PRN OTHER HYPOGLYCEMIA-SEE COMMENTS 11/22/17 16:15 Insulin Aspart (NovoLOG SUPPLEMENTAL SCALE) 1 ACHS SLIDING SCALE SQ 11/22/17 17:00 11/24/17 12:21 Lisinopril (Prinivil) 10 mg DAILY PO 11/23/17 09:00 11/23/17 09:26 Hydrochlorothiazide (Hydrodiuril) 12.5 mg DAILY PO 11/23/17 09:00 11/23/17 09:25 (Jenn Maharaj) Medical Decision Making MDM Remarks 62 y/o female s/p L3-L4 laminectomy, interbody arthrodesis using PEEK cage and autologous bone graft, L4-5 instrumental fixation using transpedicular screws and rods, L3-4 posterolateral fusion using autologous bone graft, microsurgical dissection for lumbar degenerative disk disease with intractable mechanical back pain and radiculopathy on 11/22/17 dural tear repair (Jenn Maharaj) Plan Plan Remarks cont STORE MANAGEMENT TRAINEE for pain control today, will dc tomorrow cont oral pain meds also available prn PT, start mobilizing OOB with TLSO dc ramirez cont neuro checks IS every hour SCDs and TEDs for dvt prophylaxis mag citrate for constipation appreciate medical mgt assistance (Jenn Maharaj) Attending Statement The exam, history, and the medical decision-making described in the above note were completed with the assistance of the mid-level provider. I reviewed and agree with the findings presented. I attest that I had a [id number] encounter with the patient on the same day, and personally performed and documented my assessment and findings in the medical record. (Laron Jordan MD) Jenn Maharaj November 24, 2017 16:17 Laron Jordan MD Nov 27, 2017 11:40
[2017-11-24 19:30] VITALS: BP 96/55; PULSE 76; RESP 16; TEMP 98.5; O2SAT 95
[2017-11-24] MEDS: ATORVASTATIN 80 MG TAB PO SCH (20:58)
[2017-11-24] MEDS: CHLORHEXIDINE GLUCONATE 4% SOLN 120 ML BTL TOP SCH (21:00)
[2017-11-25 00:15] VITALS: BP 93/68; PULSE 79; RESP 17; TEMP 98.5; O2SAT 96
[2017-11-25] MEDS: HYDROmorphone HCL PCA 6 MG/30 ML IV SCH ×2 (03:30→06:36)
[2017-11-25 04:30] VITALS: BP 112/56; PULSE 73; RESP 17; TEMP 97.9; O2SAT 95
[2017-11-25 05:14] LABS: AUTOMATED NEUTROPHIL # 5.6 TH/MM3 (1.8-7.7); BASOPHIL % 0.4 % (0.0-2.0); EOSINOPHIL # 0.1 TH/MM3 (0-0.4); EOSINOPHIL % 1.4 % (0.0-4.0); HEMATOCRIT 31.5 % (35.0-46.0); LYMPH % 24.4 % (9.0-44.0); LYMPHOCYTE # 2.1 TH/MM3 (1.0-4.8); MEAN CELL VOLUME 94.1 FL (80.0-100.0); MEAN CORPUSCULAR HEMOGLOBIN 32.9 PG (27.0-34.0); MEAN PLATELET VOLUME 7.9 FL (7.0-11.0); MONO % 10.4 % (0.0-8.0); MONOCYTE # 0.9 TH/MM3 (0-0.9); NEUT % 63.4 % (16.0-70.0); PLATELET COUNT 249 TH/MM3 (150-450); RED BLOOD COUNT 3.35 MIL/MM3 (4.00-5.30); RED CELL DISTRIBUTION WIDTH 12.3 % (11.6-17.2); WHITE BLOOD COUNT 8.8 TH/MM3 (4.0-11.0)
[2017-11-25 05:35] LABS: BICARBONATE 27.9 MEQ/L (21.0-32.0); CALCIUM 8.6 MG/DL (8.5-10.1); CREATININE 0.6 MG/DL (0.50-1.00)
[2017-11-25] MEDS: LEVOTHYROXINE SODIUM 150 MCG TAB PO SCH (05:37)
[2017-11-25] MEDS: ACETAMINOPHEN/HYDROcodone 325 MG/10 MG TAB PO PRN ×3 (05:37→13:33)
[2017-11-25] MEDS: SODIUM CHLOR 0.9% 1000 ML INJ 1,000 ML IV SCH ×2 (05:38→13:00)
[2017-11-25 08:00] VITALS: BP 121/63; PULSE 76; RESP 18; TEMP 97.7; O2SAT 98
[2017-11-25] MEDS: INSULIN ASPART SUPPLEMENTAL SCALE SQ SCH ×2 (08:00→12:00)
[2017-11-25] MEDS: DOCUSATE SODIUM 100 MG CAP PO SCH (09:00)
[2017-11-25] MEDS ORDERED: HYDR-3583 PO (09:08)
[2017-11-25] MEDS ORDERED: GABA600T PO (09:08)
[2017-11-25] MEDS: PANTOPRAZOLE SOD 40 MG DELAYED RELEASE TAB PO SCH (09:36)
[2017-11-25] MEDS: HYDROCHLOROTHIAZIDE 25 MG TAB PO SCH (09:36)
[2017-11-25] MEDS: CHOLECALCIFEROL (VIT D3) 1000 UNIT TAB PO SCH (09:36)
[2017-11-25] MEDS: LISINOPRIL 10 MG TAB PO SCH (09:36)
[2017-11-25] MEDS ORDERED: WALKER WHEELS/F1 MIS (09:47)
--- NOTE | 2017-11-25 09:49 | HHI.NSPN ---
(Jenn Maharaj) Note Status Status: Progress Note (Jenn Maharaj) Interval History Interval History Ms Russell is a 62 year-old female who presented with intractable mechanical back pain and geovanni evidence of lower extremity L4 radiculopathy. 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 She failed maximum nonsurgical management including multiple modalities of conservative treatment as well as pain management interventions by an interventional pain specialist. The patient has undergone a previous surgical procedure. A redo surgical decompression and arthrodesis were indicated as a last resort. L3-L4 laminectomy, interbody arthrodhesis using PEEK cage and autologous bone graft, L4-5 instrumental fixation using transpedicular screws and rods, L3-4 posterolateral fusion using autologous bone graft. Microsurgical dissection for lumbar degenerative disk disease with intractable mechanical back pain and radiculopathy on 11/22/1711/23: on bed rest, c/o of left lateral hip pain. 11/24: reports prior radiculopathy has improved, stable pain in left lateral hip and buttocks region. also has not had BM, she is passing gas. 11/25: +BM, stable left buttocks pain and lumbar surgical pain. Ambulated with PT yesterday recommended HHC with PT and RW. (Jenn Maharaj) Labs, Micro, & Vital Signs Results Date Time Temp Pulse Resp B/P (MAP) Pulse Ox O2 Delivery O2 Flow Rate FiO2 11/25/17 08:00 97.7 76 18 121/63 (82) 98 11/25/17 06:36 16 11/25/17 04:30 97.9 73 17 112/56 (74) 95 11/25/17 03:30 20 11/25/17 00:15 98.5 79 17 93/68 (76) 96 11/24/17 21:03 18 11/24/17 19:30 98.5 76 16 96/55 (69) 95 11/24/17 16:00 98.1 77 15 132/62 (85) 97 5/31/18 15:02 16 11/24/17 14:00 16 11/24/17 12:00 98.2 73 12 108/55 (72) 96 Constitutional Vital Signs Date Time Temp Pulse Resp B/P (MAP) Pulse Ox O2 Delivery O2 Flow Rate FiO2 11/25/17 08:00 97.7 76 18 121/63 (82) 98 11/25/17 06:36 16 11/25/17 04:30 97.9 73 17 112/56 (74) 95 11/25/17 03:30 20 11/25/17 00:15 98.5 79 17 93/68 (76) 96 11/24/17 21:03 18 11/24/17 19:30 98.5 76 16 96/55 (69) 95 11/24/17 16:00 98.1 77 15 132/62 (85) 97 11/24/17 15:02 16 11/24/17 14:00 16 11/24/17 12:00 98.2 73 12 108/55 (72) 96 (Jenn Maharaj) Review of Systems Constitutional: DENIES: Fever, Chills Cardiovascular: DENIES: Chest pain Genitourinary: DENIES: Urinary incontinence Musculoskeletal: COMPLAINS OF: Back pain (Jenn Maharaj) Physical Exam Ms. Russell is alert, awake and oriented to time, place and person. Speech is fluent. Cranial nerve examination: pupils equal, round and reactive to light. Facial motor are normal and symmetrical. Neck is soft and supple Muscle strength: moving all major muscle groups of upper and lower extremities Respiratory: clear, nonlabored Wound with prineo dressing, clean and dry. (Jenn Maharaj) Medications Current Medications Current Medications Medications (Trade) Dose Ordered Sig/Jose Route PRN Reason Start Time Stop Time Status Last Admin Dose Admin Sodium Chloride 1,000 ml @ 100 mls/hr Q10H IV 11/22/17 15:00 11/25/17 05:38 Bisacodyl (Dulcolax Supp) 10 mg DAILY PRN RECTAL SEVERE CONSTIPATION 11/22/17 14:30 Docusate Sodium (Colace) 100 mg BID PO 11/22/17 21:00 11/24/17 20:58 Magnesium Hydroxide (Milk Of Magnesia Liq) 30 ml DAILY PRN PO MILD CONSTIPATION 11/22/17 14:30 11/24/17 10:36 Pantoprazole Sodium (Protonix) 40 mg DAILY PO 11/23/17 09:00 11/25/17 09:36 Ondansetron HCl (Zofran Odt) 4 mg Q6H PRN PO NAUSEA OR VOMITING 11/22/17 14:30 Morphine Sulfate (Morphine Inj) 2 mg Q2H PRN IV PUSH breakthrough pain 11/22/17 14:30 Cyclobenzaprine HCl (Flexeril) 10 mg Q8H PRN PO MUSCLE SPASM 11/22/17 14:30 11/24/17 04:16 Clonidine (Catapres) 0.1 mg Q6H PRN PO/NG SYS BP GREATER THAN 170 MMHG 11/22/17 14:30 Acetaminophen (Tylenol) 650 mg Q4H PRN PO TEMPERATURE > 101.5 F 11/22/17 14:30 Menthol ([place] Vance) 1 lozenge UNSCH PRN BUCCAL SORE THROAT 11/22/17 14:30 Albuterol Sulfate (Albuterol Neb) 2.5 mg Q4HR NEB PRN INH WHEEZING 11/22/17 14:30 Naloxone HCl (Narcan Inj) 0.4 mg UNSCH PRN IV PUSH RESPIRATORY RATE LESS THAN 10 11/22/17 14:30 Diphenhydramine HCl (Benadryl Inj) 25 mg Q6H PRN IV PUSH ITCHING 11/22/17 14:30 COPPING MACHINE OPERATOR Dosage Infused (Pha) 1 Q8HR .XX 11/22/17 22:00 11/24/17 14:00 Acetaminophen/ Hydrocodone Bitart ([place] 10-325 Mg) 1 tab Q4H PRN PO PAIN SCALE 1 TO 5 11/22/17 14:30 11/25/17 05:37 Acetaminophen/ Hydrocodone Bitart ([place] 10-325 Mg) 2 tab Q4H PRN PO PAIN SCALE 6 TO 10 11/22/17 14:30 11/25/17 09:37 Atorvastatin Calcium (Lipitor) 80 mg HS PO 11/22/17 21:00 11/24/17 20:58 Cholecalciferol (Vitamin D3) 1,000 units DAILY PO 11/23/17 09:00 11/25/17 09:36 Levothyroxine Sodium (Synthroid) 150 mcg DAILY@0600 PO 11/23/17 06:00 11/25/17 05:37 Dextrose (D50w (Vial) Inj) 50 ml UNSCH PRN IV PUSH HYPOGLYCEMIA-SEE COMMENTS 11/22/17 16:15 Glucagon (Glucagon Inj) 1 mg UNSCH PRN OTHER HYPOGLYCEMIA-SEE COMMENTS 11/22/17 16:15 Insulin Aspart (NovoLOG SUPPLEMENTAL SCALE) 1 ACHS SLIDING SCALE SQ 11/22/17 17:00 11/24/17 22:36 Lisinopril (Prinivil) 10 mg DAILY PO 11/23/17 09:00 11/25/17 09:36 Hydrochlorothiazide (Hydrodiuril) 12.5 mg DAILY PO 11/23/17 09:00 11/25/17 09:36 (Jenn Maharaj) Medical Decision Making MDM Remarks 62 y/o female s/p L3-L4 laminectomy, interbody arthrodesis using PEEK cage and autologous bone graft, L4-5 instrumental fixation using transpedicular screws and rods, L3-4 posterolateral fusion using autologous bone graft, microsurgical dissection for lumbar degenerative disk disease with intractable mechanical back pain and radiculopathy on 11/22/17 dural tear repair (Jenn Maharaj) Plan Plan Remarks COPPING MACHINE OPERATOR dc'ed. cont oral pain meds prn discharge home later this afternoon, HHC with PT cont TLSO when out of bed IS every hour replace dressing prior to dc, dw charge nurse appreciate medical mgt assistance f/u office in 1 week (Jenn Maharaj) Attending Statement The exam, history, and the medical decision-making described in the above note were completed with the assistance of the mid-level provider. I reviewed and agree with the findings presented. I attest that I had a [id number] encounter with the patient on the same day, and personally performed and documented my assessment and findings in the medical record. (Laron Jordan MD) Jenn Maharaj Nov 25, 2017 09:49 Laron Jordan MD Nov 27, 2017 11:43
--- NOTE | 2017-11-25 09:51 | HHI.FF ---
Face to Face Verification Diagnosis: (1) S/P lumbar spinal fusion Physical Therapy Order: Improve ambulation Home Health Nursing Order: Medical education Signs/symptoms of disease process Diabetic education Medication education-adverse effect Wound care and dressing changes (please see wound care dc orders) Nursing assessment with vital signs I have seen patient Shazia Russell on 11/25/17. My clinical findings support the need for the requested home health care services because: Deconditioned w/ increased weakness High risk of falls I certify that my clinical findings support that this patient is homebound because: Post-op weakness Unsteady gait/balance Jenn Maharaj Nov 25, 2017 09:51
--- NOTE | 2017-11-25 09:52 | HHI.DCPOC ---
Discharge Care Plan Diagnosis: (1) S/P lumbar spinal fusion Goals to Promote Your Health * To prevent worsening of your condition and complications * To maintain your health at the optimal level Directions to Meet Your Goals Take your medications as prescribed Follow your dietary instruction Follow activity as directed Keep your appointments as scheduled Take your immunizations and boosters as scheduled If your symptoms worsen call your PCP, if no PCP go to Urgent Care Center or Emergency Room Smoking is Dangerous to Your Health. Avoid second hand smoke Call the 24-hour hour crisis hotline for domestic abuse at Jenn Maharaj Nov 25, 2017 09:51
--- NOTE | 2017-11-25 10:25 | HHI.DS ---
Discharge Summary Admission Date November 22, 2017 at 06:18 Discharge Date: Nov 25, 2017 Admitting Diagnosis s/p lumbar fusion (1) S/P lumbar spinal fusion ICD Code: Z98.1 - Arthrodesis status Brief History Ms Russell is a 62 year-old female who presented with intractable mechanical back pain and geovanni evidence of lower extremity L4 radiculopathy. 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 She failed maximum nonsurgical management including multiple modalities of conservative treatment as well as pain management interventions by an interventional pain specialist. The patient has undergone a previous surgical procedure. A redo surgical decompression and arthrodesis were indicated as a last resort. CBC/BMP: 11/25/17 0430 11/25/17 0430 Significant Findings Laboratory Tests Test 11/23/17 05:29 11/23/17 06:20 11/24/17 04:39 11/25/17 04:30 White Blood Count 13.2 TH/MM3 (4.0-11.0) Red Blood Count 3.66 MIL/MM3 (4.00-5.30) 3.35 MIL/MM3 (4.00-5.30) 3.35 MIL/MM3 (4.00-5.30) Hematocrit 34.8 % (35.0-46.0) 31.7 % (35.0-46.0) 31.5 % (35.0-46.0) Neutrophils (%) (Auto) 76.2 % (16.0-70.0) Monocytes (%) (Auto) 8.1 % (0.0-8.0) 10.4 % (0.0-8.0) 10.4 % (0.0-8.0) Neutrophils # (Auto) 10.1 TH/MM3 (1.8-7.7) Monocytes # (Auto) 1.1 TH/MM3 (0-0.9) 1.1 TH/MM3 (0-0.9) Blood Urea Nitrogen 20 MG/DL (7-18) 20 MG/DL (7-18) Random Glucose 120 MG/DL (74-106) 113 MG/DL (74-106) 115 MG/DL (74-106) Calcium Level 8.2 MG/DL (8.5-10.1) 8.2 MG/DL (8.5-10.1) Estimat Glomerular Filtration Rate 57 ML/MIN (>89) 82 ML/MIN (>89) Hemoglobin 11.0 GM/DL (11.6-15.3) 11.0 GM/DL (11.6-15.3) Imaging Last Impressions Lumbar Spine X-Ray 11/22/17 0000 Signed Impressions: CONCLUSION: Fluoroscopic images during placement of posterior screws/rods at L3-4 with inte rvertebral disc device. Hospital Course Ms. Russell underwent a L3-L4 laminectomy, interbody arthrodesis using PEEK cage and autologous bone graft, L4-5 instrumental fixation using transpedicular screws and rods, L3-4 posterolateral fusion using autologous bone graft, microsurgical dissection on November 22, 2017 for lumbar degenerative disk disease with intractable mechanical back pain and radiculopathy. Ms. Russell was placed on bed rest for 24 hours. Her surgical pain controlled, and she was discharged home with home health care in stable conditions. Pt Condition on Discharge: Stable Discharge Disposition: Disch w/ Home Health Serv Discharge Instructions DIET: Follow Instructions for: Diabetic Diet ACTIVITIES You can perform: Weight Bearing As Mike ADDITIONAL Activity Instructio: Avoid strenuous activities, heavy lifting over 5 lbs, overhead activities, repetitive bending, twisting, pushing, pulling or any activities which might result in stress over the spine. Avoid situation that will put at risk for falls. Use assistive device as needed for walking. Wear provided back brace when out of bed. Follow up Referrals: Neurosurgery - 1 Week with Laron Jordan MD PCP Follow-up - 1 Week with Zena Matamoros MD R2 New Medications: Gabapentin (Gabapentin) 600 Mg Tab 600 MG PO BID for Pain, #60 TAB 0 Refills Walker with Front Wheels (Walker with Front Wheels) 1 Mis Mis EA .XX DIRECTED, #1 0 Refills Hydrocodone/Acetaminophen (Hydrocodone-Acetamin 10-325 mg) 10 Mg-325 Mg Tablet 1 TAB PO Q8HR PRN for PAIN SCALE 1 TO 5, #90 TAB 0 Refills Continued Medications: Atorvastatin (Atorvastatin) 80 Mg Tab 80 MG PO HS for Cholesterol Management, #30 TAB 5 Refills Cholecalciferol (Vitamin D-1000) 1,000 Unit Tab 1000 UNITS PO DAILY for Nutritional Supplement, #1 BOTTLE 0 Refills Hydrocodone-Acetaminophen ([place]) 10-325 Mg Tab 1 TAB PO Q8HR PRN for PAIN, #60 TAB 0 Refills Levothyroxine (Levothyroxine) 150 Mcg Tab 150 MCG PO DAILY for Thyroid, #30 TAB 3 Refills Lisinopril-Hctz (Lisinopril-Hctz) 10-12.5 Mg Tab 1 TAB PO DAILY for Blood Pressure Management, #30 TAB 0 Refills Metformin (Metformin) 850 Mg Tab 850 MG PO DAILY for Blood Sugar Management, #30 TAB 5 Refills With a meal Jenn Maharaj Nov 25, 2017 10:25
--- NOTE | 2017-11-25 11:52 | HHI.FPPN ---
Subjective Remarks Mrs. Russell was afebrile with stable vital signs overnight. Patient reports that she has been doing ok; she still has back pain and left buttock pain but it is controlled. Patient states that she has planned home health care being arranged and feels she is safe with adequate support at home. Patient does not report chest pain, shortness of breath, or abnormal urination. Patient reports having a bowel movement. Objective Vitals Vital Signs Date Time Temp Pulse Resp B/P (MAP) Pulse Ox O2 Delivery O2 Flow Rate FiO2 11/25/17 08:00 97.7 76 18 121/63 (82) 98 11/25/17 06:36 16 11/25/17 04:30 97.9 73 17 112/56 (74) 95 11/25/17 03:30 20 11/25/17 00:15 98.5 79 17 93/68 (76) 96 11/24/17 21:03 18 11/24/17 19:30 98.5 76 16 96/55 (69) 95 11/24/17 16:00 98.1 77 15 132/62 (85) 97 11/24/17 15:02 16 11/24/17 14:00 16 11/24/17 12:00 98.2 73 12 108/55 (72) 96 I/O 11/24/17 11/24/17 11/24/17 11/25/17 11/25/17 11/25/17 07:00 15:00 23:00 07:00 15:00 23:00 Intake Total 360 ml 4.7 ml 1477 ml 720 ml Balance 360 ml 4.7 ml 1477 ml 720 ml Intake Oral 360 ml 960 ml 720 ml IV Total 4.7 ml 517 ml # Voids 1 2 4 # Bowel Movements 2 2 Result Diagram: 11/25/17 0430 11/25/17 0430 Imaging Last Impressions Lumbar Spine X-Ray 11/22/17 0000 Signed Impressions: CONCLUSION: Fluoroscopic images during placement of posterior screws/rods at L3-4 with inte rvertebral disc device. Objective Remarks GENERAL: No acute distress SKIN: No visible lesions. Surgical incision with overlying dressing. No visible surrounding erythema EYES: Extraocular motions grossly intact. CARDIOVASCULAR: Regular rate and rhythm without murmurs to auscultation. No significant LE edema RESPIRATORY: Clear to auscultation. Breath sounds equal bilaterally. No congestion to auscultation. GASTROINTESTINAL: Abdomen soft, non-tender, nondistended MUSCULOSKELETAL: Extremities without edema. No joint tenderness, effusion, or edema noted. No calf tenderness. NEUROLOGICAL: Awake and alert. Cranial nerves grossly intact. Motor and sensory grossly within normal limits. Normal speech. A/P Assessment and Plan Patient is a 62-year-old female with a history of spinal stenosis, chronic hepatitis C, diabetes, hypothyroidism, hypertension who postop L3-L4 hemilaminectomy Discharge Planning Anticipate discharge today with home health per NS Problem List: (1) Status post lumbar surgery ICD Codes: Z98.890 - Other specified postprocedural states Status: Acute Plan: Impression: Patient is POD 3 from L3-L4 laminectomy, interbody arthrodhesis using PEEK cage and autologous bone graft, L4-5 instrumental fixation using transpedicular screws and rods, L3-4 posterolateral fusion using autologous bone graft with Dr. Jordan Per EMR, patient with history of intractable mechanical back pain and radiculopathy -Management per Neurosurgery -Continue OOB today with TLSO brace -Contine PT at home -Home health -IS hourly -Dressing replacement prior to discharge -f/u in office in 1 week -Gabapentin 600mg BID and Percocet 10mg at discharge per Neurosurgery (2) Diabetes ICD Codes: E11.9 - Type 2 diabetes mellitus without complications Plan: -Low dose sliding scale insulin -Blood glucose monitoring -Hypoglycemia protocol ordered -Plan to resume metformin at discharge (3) Hypothyroidism ICD Codes: E03.9 - Hypothyroidism, unspecified Status: Acute Plan: -Continue home medication of levothyroxine 150 mcg p.o. daily (4) Hypertension ICD Codes: I10 - Essential (primary) hypertension Status: Chronic Plan: -Continue home medication of lisinopril-HCTZ 10-12.5 mg p.o. daily (5) Hypercholesterolemia ICD Codes: E78.00 - Pure hypercholesterolemia, unspecified Status: Chronic Plan: -Continue home medication of atorvastatin 80 mg p.o. nightly (6) fen/ppx Status: Chronic Plan: Fluids: Maintenance fluids with normal saline IV Electrolytes: Monitor and replete Nutrition: Advance diet as tolerated, heart healthy diet ordered GI prophylaxis: Bowel regimen ordered (7) Contraindication to anticoagulation therapy ICD Codes: Z53.09 - Procedure and treatment not carried out because of other contraindication Plan: Patient is postop day 3 -SCDs bilaterally per NS Problem Qualifiers (1) Hypertension: Qualified Codes: I10 - Essential (primary) hypertension Kelby Martin MD R3 Nov 25, 2017 11:52
[2017-11-25 12:00] VITALS: BP 119/58; PULSE 71; RESP 19; TEMP 97.3; O2SAT 98
== END 2017-11-25 13:43 | disposition home health service (06) | DRG 454 ==
LOC: HSDI 06:18 → N06B 15:55
PROVIDERS: ADMIT Neurological Surgery; ATTEND Neurological Surgery
PROC: 0SG00J1 Fusion of Lumbar Vertebral Joint with Synthetic Substitute, Posterior Approach, Posterior Column, Open Approach (ICD-10-PCS; 2017-11-22)
PROC: 0QB20ZZ Excision of Right Pelvic Bone, Open Approach (ICD-10-PCS; 2017-11-22)
PROC: 0ST20ZZ Resection of Lumbar Vertebral Disc, Open Approach (ICD-10-PCS; 2017-11-22)
PROC: 00QT0ZZ Repair Spinal Meninges, Open Approach (ICD-10-PCS; 2017-11-22)
PROC: 4A11X4G Monitoring of Peripheral Nervous Electrical Activity, Intraoperative, External Approach (ICD-10-PCS; 2017-11-22)
PROC: 0SG00AJ Fusion of Lumbar Vertebral Joint with Interbody Fusion Device, Posterior Approach, Anterior Column, Open Approach (ICD-10-PCS; principal; 2017-11-22 08:39)
DX: M51.16 Intervertebral disc disorders with radiculopathy, lumbar region (principal); Z68.41 Body mass index [BMI] 40.0-44.9, adult; I95.9 Hypotension, unspecified; I10 Essential (primary) hypertension; E03.9 Hypothyroidism, unspecified; E78.00 Pure hypercholesterolemia, unspecified; G89.29 Other chronic pain; E11.9 Type 2 diabetes mellitus without complications; E66.9 Obesity, unspecified; B18.2 Chronic viral hepatitis C; M48.061 Spinal stenosis, lumbar region without neurogenic claudication; K59.00 Constipation, unspecified; Z87.891 Personal history of nicotine dependence; Z79.84 Long term (current) use of oral hypoglycemic drugs
CPT/HCPCS: 72100; 76000; 80048; 82948; 85025; 86850; 86900; 86901; 87086; 94150; C1713; J0131; J0690; J1100; J1170; J1580; J1815; J2175; J2250; J2370; J2405; J3010; J3370; J7030; J7050; J7120; L0200; L0484